=== PATIENT | female | born 1940 | race Caucasian/White ===

== ENCOUNTER 2016-08-13 06:53 | Day surgery (SDC) | payer MEDICARE, OTHER ==
[2016-08-13] MEDS ORDERED: Sodium Chloride 0.9% 10 ML Syringe FLUSH PRN (07:00)
[2016-08-13] MEDS ORDERED: Lactated Ringers 1,000 ML IV SCH (07:00)
[2016-08-13] MEDS ORDERED: Lidocaine 2% 100 MG/5 ML Syringe IVPUSH ONE (08:30)
[2016-08-13] MEDS ORDERED: Propofol 200 MG/20 ML SDV IV ONE (08:30)
[2016-08-13] MEDS ORDERED: Midazolam 1 MG/ML 2 ML SDV IV ONE (08:30)
--- NOTE | 2016-08-13 08:54 | PCM.OPNOTE ---
- General Post-Op/Procedure Note Date of Surgery/Procedure: 08/13/16 Operative Procedure(s): egd with bx Findings: gastritis hiatal hernia Pre Op Diagnosis: anemia Post-Op Diagnosis: gastritis. hiatal hernia Anesthesia Technique: MAC Primary Surgeon: Angel Dickson Anesthesia Provider: Susie Soriano Pathology: gastric Complications: None Condition: Good Free Text/Narrative:: see dictation
[2016-08-13 11:26] VITALS: BP 159/79
--- NOTE | 2016-08-13 12:09 | OR ---
DATE OF OPERATION: 08/13/2016 SURGEON: Angel Dickson MD PROCEDURE PERFORMED: Esophagogastroduodenoscopy with cold forceps biopsy. PREOPERATIVE DIAGNOSES: Anemia and abdominal pain, epigastric. POSTOPERATIVE DIAGNOSES: Hiatal hernia and gastritis. INDICATIONS FOR PROCEDURE: This is a 75-year-old white female, who is referred with the above-mentioned complaints. She was offered and accepted an EGD. DESCRIPTION OF OPERATION: After an excellent IV sedation was administered, the bite block was inserted. The flexible endoscope was passed without difficulty down the patient's esophagus into the stomach. The stomach was insufflated, and the scope was passed through the pylorus to the second portion of the duodenum and slowly withdrawn. The following findings were noted. Duodenum was unremarkable. Stomach demonstrated some diffuse gastritis as well as a hiatal hernia. Biopsies were taken as well as photos. GE junction measured at 30 cm, and the esophagus was essentially unremarkable. The stomach was deflated. Scope was removed. The patient tolerated the procedure well and was taken to recovery room in good condition. /[id number] /COLEENL
== END 2016-08-13 11:24 | disposition home or self-care (01) ==
LOC: FB.SDS 06:53
PROVIDERS: ATTEND Surgery
DX: K29.50 Unspecified chronic gastritis without bleeding (principal); K44.9 Diaphragmatic hernia without obstruction or gangrene; Z79.899 Other long term (current) drug therapy; D64.9 Anemia, unspecified; I12.9 Hypertensive chronic kidney disease with stage 1 through stage 4 chronic kidney disease, or unspecified chronic kidney disease; N18.9 Chronic kidney disease, unspecified; E78.2 Mixed hyperlipidemia; F32.9 Major depressive disorder, single episode, unspecified; Z98.890 Other specified postprocedural states; Z90.710 Acquired absence of both cervix and uterus; Z90.49 Acquired absence of other specified parts of digestive tract
CPT/HCPCS: 00740; 43239; 88305; 88342; J2250; J2704; J7120

== ENCOUNTER 2017-10-08 06:38 | Day surgery (SDC) | payer MEDICARE, OTHER ==
[2017-10-08] MEDS ORDERED: Sodium Chloride 0.9% 10 ML Syringe FLUSH PRN (06:45)
[2017-10-08] MEDS ORDERED: Lactated Ringers 1,000 ML IV SCH (06:45)
--- NOTE | 2017-10-08 08:18 | PCM.OPNOTE ---
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
[2017-10-08 09:01] VITALS: BP 137/77
--- NOTE | 2017-10-08 14:24 | OR ---
DATE OF OPERATION: 10/08/2017 SURGEON: Angel Dickson MD PROCEDURES PERFORMED: Upper endoscopy with esophageal dilatation. PREOPERATIVE DIAGNOSIS: Upper esophageal sphincter hypertension. POSTOPERATIVE DIAGNOSIS: Upper esophageal sphincter hypertension. INDICATIONS FOR PROCEDURE: This is a 77-year-old white female who has a history of some dysphagia and some coughing. EGD and barium swallow were essentially unremarkable. However, on esophageal manometry, she was noted to have some hypertension in her UES and, therefore, was offered dilatation to see if that would make a difference. DESCRIPTION OF OPERATION: After an excellent IV sedation was administered, the bite block was inserted. The flexible endoscope was passed down the esophagus and into the stomach. The scope was then slowly withdrawn, and the mucosa was carefully inspected. At the upper esophagus, distal half, the balloon was deployed and in a series of 3 dilatations, the upper esophageal sphincter was stretched out. No bloody show was noted when I stretched out to the maximum diameter of our current balloon at 18 mm. The process was repeated twice. Mucosa was then inspected to look for any damage and none was seen. The scope was then removed. The patient tolerated the procedure well and was taken to Recovery in a good condition. /[id number] /MODL
== END 2017-10-08 09:45 | disposition home or self-care (01) ==
LOC: FB.SDS 06:38
PROVIDERS: ATTEND Surgery
PROC: 0D718ZZ Dilation of Upper Esophagus, Via Natural or Artificial Opening Endoscopic (ICD-10-PCS; principal; 2017-10-08)
DX: K22.4 Dyskinesia of esophagus (principal); R13.14 Dysphagia, pharyngoesophageal phase; Z79.82 Long term (current) use of aspirin; Z79.899 Other long term (current) drug therapy; Z88.8 Allergy status to other drugs, medicaments and biological substances; E78.2 Mixed hyperlipidemia; I12.9 Hypertensive chronic kidney disease with stage 1 through stage 4 chronic kidney disease, or unspecified chronic kidney disease; N18.9 Chronic kidney disease, unspecified
CPT/HCPCS: 43249; J7120

== ENCOUNTER 2020-02-10 07:25 | Day surgery (SDC) | payer MEDICARE, OTHER ==
[2020-02-10] MEDS ORDERED: Lidocaine 1% PF 2 ML SDV IV ONE (07:26)
[2020-02-10] MEDS ORDERED: Propofol 200 MG/20 ML SDV IV ONE (07:26)
[2020-02-10] MEDS ORDERED: Sodium Chloride 0.9% 10 ML Syringe FLUSH PRN (07:30)
[2020-02-10] MEDS ORDERED: Lactated Ringers 1,000 ML IV SCH (07:30)
--- NOTE | 2020-02-10 09:05 | PCM.OPNOTE ---
- General Post-Op/Procedure Note Date of Surgery/Procedure: 02/10/20 Operative Procedure(s): c scope Findings: external hemorrhoids sigmoid diverticulosis Pre Op Diagnosis: bleeding per rectum Post-Op Diagnosis: external hemorrhoids. sigmoid diverticulosis Anesthesia Technique: SHONNA Primary Surgeon: Angel Dickson Anesthesia Provider: Hi Garibay Pathology: none Complications: None Condition: Good Free Text/Narrative:: see dictation
[2020-02-10 10:49] VITALS: BP 124/92; PULSE 55
--- NOTE | 2020-02-10 11:39 | OR ---
DATE OF OPERATION: 02/10/2020 SURGEON: Angel Dickson MD PROCEDURE PERFORMED: Colonoscopy. PREOPERATIVE DIAGNOSIS: Bleeding per rectum. POSTOPERATIVE DIAGNOSIS: External hemorrhoids as well as diverticulosis. INDICATIONS FOR PROCEDURE: This is an 79-year-old who was referred with a complaint of the toilet bowl water occasionally turning pink. Her last scope was 5 years ago and essentially was unremarkable except for some diverticulosis and some hemorrhoids. She was offered and accepted colonoscopy. DESCRIPTION OF PROCEDURE: After an excellent IV sedation was administered, digital rectal exam was performed. No marked abnormality was noted. The flexible colonoscope was inserted and advanced to the cecum. The prep was excellent. The following findings were noted: Ascending colon, unremarkable. Transverse colon, unremarkable. Descending colon, unremarkable. Sigmoid, moderate diverticulosis. Rectum and anus, some external hemorrhoidal tags were noted and no marked internal hemorrhoids were noted. The patient tolerated the procedure well. MY RECOMMENDATIONS: Repeat colonoscopy on a p.r.n. basis going forward. /[id number] /NAIMA
== END 2020-02-10 10:35 | disposition home or self-care (01) ==
LOC: FB.SDS 07:25
PROVIDERS: ATTEND Surgery
DX: K57.30 Diverticulosis of large intestine without perforation or abscess without bleeding (principal); K64.8 Other hemorrhoids; K64.4 Residual hemorrhoidal skin tags; E78.2 Mixed hyperlipidemia; I12.9 Hypertensive chronic kidney disease with stage 1 through stage 4 chronic kidney disease, or unspecified chronic kidney disease; N18.9 Chronic kidney disease, unspecified; F32.9 Major depressive disorder, single episode, unspecified; Z79.899 Other long term (current) drug therapy; Z88.8 Allergy status to other drugs, medicaments and biological substances; Z98.890 Other specified postprocedural states
CPT/HCPCS: 00811; 45378; J2001; J2704; J7120

== ENCOUNTER 2020-02-14 16:55 | Emergency (ER) | payer MEDICARE, OTHER ==
[2020-02-14] MEDS ORDERED: Acetaminophen/HYDROcodone 325-5 MG Tab PO ONE (16:56)
[2020-02-14] MEDS: Ondansetron 4 MG Tab.DIS PO ONE (18:43)
[2020-02-14] MEDS: HYDROmorphone 2 MG/ML SDV IM ONE (18:43)
--- NOTE | 2020-02-14 18:44 | EDM.PDOC ---
ED HPI GENERAL MEDICAL PROBLEM - General Chief Complaint: Back Pain or Injury Stated Complaint: BACK PAIN Time Seen by Provider: 02/14/20 18:05 Source of Information: Reports: Patient History Limitations: Reports: No Limitations - History of Present Illness INITIAL COMMENTS - FREE TEXT/NARRATIVE: c/o LBP at 4-5p yesterday pt had sudden onset of pain in her R lower hemithorax in the posterior axillary line, up about 1/[address] up the thorax, also with some pain across the lower back took ASA 2 tabs q6h the helped some went to walk-in, writhing in pain in walk-in, Christin called me and said she had a UTI (mod bact, mod epi's, 10-20 wbc) altho pt saw Dr Viramontes 2w ago and just got off of an antbx TID 2d ago no dysuria, no freq pt has had chronic LBP, yet the current pain is much worse than any pain she has had in 1.5y, was better after Toradol inc'd with change in position, no radiation, slight N, no V lives alone, drives, does housekeeping, cooks, uses quad walker has had 3 surgeries of l-spine last labs in [employer] 5y ago Christin concerned re pyelo, however no fever and not tender at CVAT, not right hx or PE for pyelo no abd pain, no clinical concern for GI or intrabd problem pain appears MS in origin, possible exacerbation of her chronic mechanical pain altho she points to pain more at the posterior R axillary line, cannot exclude a compression fx with radiation laterally, will obtain CT of T and L spine pt her alone, says her son can come pick her up when needed Lower Back Pain Score (Numeric/FACES): 5 - Related Data Allergies Allergy/AdvReac Type Severity Reaction Status Date / Time pseudoephedrine Allergy Cannot Verified 02/14/20 19:00 [From Kaylie] Remember Home Meds: Home Meds Citalopram Hydrobromide [Celexa] 20 mg PO DAILY 11/01/14 [History] Ferrous Sulfate 650 mg PO DAILY 11/01/14 [History] Fexofenadine [Yesica] 180 mg PO DAILY PRN 11/01/14 [History] Multivitamin with Minerals [Multiple Vitamin] 1 tab PO DAILY 11/01/14 [History] atenoloL [Atenolol] 25 mg PO DAILY 11/01/14 [History] rOPINIRole [Requip] 0.25 mg PO BEDTIME 11/01/14 [History] atorvaSTATin [Lipitor] 40 mg PO BEDTIME 08/12/16 [History] traZODone 50 mg PO BEDTIME PRN 08/12/16 [History] Pantoprazole [ProTONIX] 40 mg PO DAILY 10/07/17 [History] Past Medical History HEENT History: Reports: Allergic Rhinitis, Cataract, Impaired Vision Cardiovascular History: Reports: High Cholesterol, Hypertension, Other (See Below) Other Cardiovascular History: VENOUS INSUFFICIENCY Respiratory History: Reports: SOB Gastrointestinal History: Reports: GERD, GI Bleed, Hemorrhoids, Hiatal Hernia, PUD Genitourinary History: Reports: Renal Disease Musculoskeletal History: Reports: Back Pain, Chronic, Fracture Other Musculoskeletal History: DDD. RLS Neurological History: Reports: CVA, Neuropathy, Peripheral, Other (See Below) Other Neuro History: RESTLESS LEG SYNDROME Psychiatric History: Reports: Depression Endocrine/Metabolic History: Reports: None Hematologic History: Reports: Anemia Immunologic History: Reports: None Oncologic (Cancer) History: Reports: Basal Cell Carcinoma Other Oncologic History: RT EAR ON SKIN Dermatologic History: Reports: Seborrheic Dermatitis Other Dermatologic History: ACTINIC KERATOSIS - Infectious Disease History Infectious Disease History: Reports: Chicken Pox, Measles, Mumps - Past Surgical History Head Surgeries/Procedures: Reports: None HEENT Surgical History: Reports: Cataract Surgery Cardiovascular Surgical History: Reports: None Respiratory Surgical History: Reports: None GI Surgical History: Reports: Cholecystectomy, Colonoscopy, EGD Other GI Surgeries/Procedures: HEMORRHOIDECTOMY. ESOPHAGEAL MANOMETRY Female Surgical History: Reports: Hysterectomy, Salpingo-Oophorectomy Endocrine Surgical History: Reports: None Neurological Surgical History: Reports: Discectomy, Laminectomy Musculoskeletal Surgical History: Reports: ORIF, Other (See Below) Other Musculoskeletal Surgeries/Procedures:: LAMINECTOMY. RIGHT ANKLE ORIF Social & Family History - Family History Family Medical History: Noncontributory - Caffeine Use Caffeine Use: Reports: Coffee, Tea ED ROS GENERAL - Review of Systems Review Of Systems: See Below Constitutional: Reports: No Symptoms HEENT: Reports: No Symptoms Respiratory: Reports: No Symptoms Cardiovascular: Reports: No Symptoms Endocrine: Reports: No Symptoms GI/Abdominal: Reports: No Symptoms : Reports: No Symptoms Musculoskeletal: Reports: Back Pain Skin: Reports: No Symptoms Neurological: Reports: No Symptoms Psychiatric: Reports: No Symptoms Hematologic/Lymphatic: Reports: No Symptoms Immunologic: Reports: No Symptoms ED EXAM,LOWER BACK PAIN/INJURY - Physical Exam Exam: See Below Exam Limited By: No Limitations General Appearance: Alert, WD/WN, Moderate Distress Head: Atraumatic, Normocephalic Neck: Normal Inspection, Supple, Non-Tender, Full Range of Motion. No: Lymphadenopathy (R), Lymphadenopathy (L) Respiratory/Chest: No Respiratory Distress, Lungs Clear, Normal Breath Sounds, No Accessory Muscle Use Cardiovascular: Regular Rate, Rhythm, No Edema, No Rub, Other (2/6 BARBARA at LSB) GI/Abdominal: Normal Bowel Sounds, Soft, Non-Tender, No Organomegaly, No Distention Back Exam: Other (mild tender 1+ at R posterior axillary line up thorax 1/3rd, no point tender, no localized rib tender, deep breath without splinting, no true tender of T or L spine, nonspecific mild tender across lower back, old long scar over l-spine in midline). No: CVA Tenderness (R), CVA Tenderness (L) Extremities: Normal Inspection, Non-Tender, No Pedal Edema Neurological: Alert, CN II-XII Intact, No Motor/Sensory Deficits, Oriented x 3 Psychiatric: Normal Affect, Normal Mood Skin Exam: Warm, Dry, Intact, Normal Color, No Rash Lymphatic: No Adenopathy Course - Vital Signs Last Recorded V/S: Last Vital Signs Temp 36.7 C 02/14/20 18:00 Pulse 54 L 02/14/20 18:00 Resp 18 02/14/20 18:00 BP 141/70 H 02/14/20 18:00 Pulse Ox 99 02/14/20 18:00 - Orders/Labs/Meds Orders: Active Orders 24 hr Category Date Time Status Lumbar Spine wo Cont [CT] Stat Exams 02/14/20 18:36 Ordered Thoracic Spine wo Cont [CT] Stat Exams 02/14/20 18:34 Ordered Labs: Laboratory Tests 02/14/20 02/14/20 02/14/20 Range/Units 18:35 18:35 18:35 WBC 4.8 (4.5-12.0) X10-3/uL RBC 3.44 (3.23-5.20) x10(6)uL Hgb 10.8 L (11.5-15.5) g/dL Hct 32.3 (30.0-51.3) % MCV 93.6 (80-96) fL MCH 31.3 (27.7-33.6) pg MCHC 33.4 (32.2-35.4) g/dL RDW 11.7 (11.5-15.5) % Plt Count 152 (125-369) X10(3)uL MPV 9.8 (7.4-10.4) fL Neut % (Auto) 43.7 L (46-82) % Lymph % (Auto) 41.8 H (13-37) % [place] % (Auto) 8.9 (4-12) % Eos % (Auto) 5 (1.0-5.0) % Baso % (Auto) 1 (0-2) % Neut # (Auto) 2.2 (1.6-8.3) # Lymph # (Auto) 2.0 (0.6-5.0) # [place] # (Auto) 0.4 (0.0-1.3) # Eos # (Auto) 0.2 (0.0-0.8) # Baso # (Auto) 0.0 (0.0-0.2) # Sodium 140 (135-145) mmol/L Potassium 5.0 (3.5-5.3) mmol/L Chloride 106 (100-110) mmol/L Carbon Dioxide 25 (21-32) mmol/L BUN 31 H (7-18) mg/dL Creatinine 1.5 H (0.55-1.02) mg/dL Est Cr Clr Drug Dosing TNP Estimated GFR (MDRD) 33 L (>60) BUN/Creatinine Ratio 20.7 H (9-20) Glucose 95 (80-116) mg/dL Calcium 10.7 H (8.6-10.2) mg/dL Magnesium 1.8 (1.8-2.5) mg/dL Total Bilirubin 0.2 (0.1-1.3) mg/dL AST 24 (5-25) IU/L ALT 34 (12-36) U/L Alkaline Phosphatase 56 (56-112) IU/L C-Reactive Protein (0.5-0.9) mg/dL Total Protein 6.5 (6.0-8.0) g/dL Albumin 3.3 (3.2-4.6) g/dL Globulin 3.2 g/dL Albumin/Globulin Ratio 1.0 02/13/ Range/Units 18:35 WBC (4.5-12.0) X10-3/uL RBC (3.23-5.20) x10(6)uL Hgb (11.5-15.5) g/dL Hct (30.0-51.3) % MCV (80-96) fL MCH (27.7-33.6) pg MCHC (32.2-35.4) g/dL RDW (11.5-15.5) % Plt Count (125-369) X10(3)uL MPV (7.4-10.4) fL Neut % (Auto) (46-82) % Lymph % (Auto) (13-37) % [place] % (Auto) (4-12) % Eos % (Auto) (1.0-5.0) % Baso % (Auto) (0-2) % Neut # (Auto) (1.6-8.3) # Lymph # (Auto) (0.6-5.0) # [place] # (Auto) (0.0-1.3) # Eos # (Auto) (0.0-0.8) # Baso # (Auto) (0.0-0.2) # Sodium (135-145) mmol/L Potassium (3.5-5.3) mmol/L Chloride (100-110) mmol/L Carbon Dioxide (21-32) mmol/L BUN (7-18) mg/dL Creatinine (0.55-1.02) mg/dL Est Cr Clr Drug Dosing Estimated GFR (MDRD) (>60) BUN/Creatinine Ratio (9-20) Glucose (80-116) mg/dL Calcium (8.6-10.2) mg/dL Magnesium (1.8-2.5) mg/dL Total Bilirubin (0.1-1.3) mg/dL AST (5-25) IU/L ALT (12-36) U/L Alkaline Phosphatase (56-112) IU/L C-Reactive Protein 0.2 L (0.5-0.9) mg/dL Total Protein (6.0-8.0) g/dL Albumin (3.2-4.6) g/dL Globulin g/dL Albumin/Globulin Ratio Meds: Medications Discontinued Medications Generic Name Dose Route Start Last Admin Trade Name Jimq PRN Reason Stop Dose Admin Hydromorphone HCl 0.5 mg 02/14/20 18:32 02/14/20 18:43 Dilaudid IM 02/14/20 18:33 0.5 mg ONETIME ONE Administration Ondansetron HCl 4 mg 02/14/20 18:33 02/14/20 18:43 Zofran Odt PO 02/14/20 18:34 4 mg ONETIME ONE Administration - Re-Assessments/Exams Free Text/Narrative Re-Assessment/Exam: 02/14/20 20:13 pt's exam is c/w compression fx, severity of pain unusual for pt as well as reoccurrence of pain despite meds including Toradol Departure - Departure Time of Disposition: 20:14 Disposition: Still A Patient 30 Condition: Good Clinical Impression: Severe back pain - Discharge Information *PRESCRIPTION DRUG MONITORING PROGRAM REVIEWED*: Not Applicable *COPY OF PRESCRIPTION DRUG MONITORING REPORT IN PATIENT LATA: Not Applicable Referrals: PCP,None [Ordering Only Provider] - Forms: ED Department Discharge Additional Instructions: pt signed out to Dr Lin at 7p at change of shift, CT of T and L spine pending, labs pending Sepsis Event Note (ED) - Focused Exam Vital Signs: Vital Signs Temp Pulse Resp BP Pulse Ox 02/14/20 18:00 36.7 C 54 L 18 141/70 H 99 - My Orders Last 24 Hours: My Active Orders 02/14/20 18:34 Thoracic Spine wo Cont [CT] Stat 02/14/20 18:36 Lumbar Spine wo Cont [CT] Stat - Assessment/Plan Last 24 Hours: My Active Orders 02/14/20 18:34 Thoracic Spine wo Cont [CT] Stat 02/14/20 18:36 Lumbar Spine wo Cont [CT] Stat
[2020-02-14 22:24] VITALS: BP 125/64; PULSE 52
== END 2020-02-14 21:45 | disposition home or self-care (01) ==
LOC: FB.ED 16:55
DX: M54.5 Low back pain (principal); I10 Essential (primary) hypertension; E78.00 Pure hypercholesterolemia, unspecified; K21.9 Gastro-esophageal reflux disease without esophagitis; F32.9 Major depressive disorder, single episode, unspecified; Z90.49 Acquired absence of other specified parts of digestive tract; Z90.710 Acquired absence of both cervix and uterus; Z88.8 Allergy status to other drugs, medicaments and biological substances; Z79.899 Other long term (current) drug therapy
CPT/HCPCS: 36415; 72128; 72131; 80053; 83735; 85025; 86140; 96372; 99284; A9270; J1170

== ENCOUNTER 2020-08-19 14:54 | Emergency (ER) | payer MEDICARE, OTHER ==
[2020-08-19] MEDS ORDERED: Sodium Phosphate,Monobasic/Sodium Phosphate,Dibasic Enema 133 ML Bottle RECTAL ONE (15:19)
[2020-08-19] MEDS ORDERED: Sodium Chloride 0.9% 1,000 ML IV ONE (15:20)
--- NOTE | 2020-08-19 16:02 | EDM.PDOC ---
ED HPI GENERAL MEDICAL PROBLEM - General Stated Complaint: INTESTINAL PAIN Time Seen by Provider: 08/19/20 15:00 Source of Information: Reports: Patient History Limitations: Reports: No Limitations - History of Present Illness INITIAL COMMENTS - FREE TEXT/NARRATIVE: c/o constipation pt states she is weak, did not eat bfast or lunch, sat on toilet from 8:30a to 2:30p, got up only twice, once to answer phone, once to drink some Gatorade took Ducolax, drank a bottle of Mg citrate has a cane, ordered a walker lives alone in her own house says she cannot move her bowels has chronic back pain, no abd pain - Related Data Allergies Allergy/AdvReac Type Severity Reaction Status Date / Time pseudoephedrine Allergy Cannot Verified 02/14/20 19:00 [From Kaylie] Remember Home Meds: Home Meds Citalopram Hydrobromide [Celexa] 20 mg PO DAILY 11/01/14 [History] Fexofenadine [Yesica] 180 mg PO DAILY PRN 11/01/14 [History] Multivitamin with Minerals [Multiple Vitamin] 1 tab PO DAILY 11/01/14 [History] atenoloL [Atenolol] 25 mg PO DAILY 11/01/14 [History] rOPINIRole [Requip] 0.25 mg PO BEDTIME 11/01/14 [History] atorvaSTATin [Lipitor] 40 mg PO BEDTIME 08/12/16 [History] traZODone 50 mg PO BEDTIME PRN 08/12/16 [History] Pantoprazole [ProTONIX] 40 mg PO DAILY 10/07/17 [History] Acetaminophen/HYDROcodone [[place] 325-5 MG] 1 - 2 tab PO Q4H PRN #10 tab 02/14/20 [Rx] Cyclobenzaprine [Flexeril] 5 mg PO Q8H PRN #15 tab 02/14/20 [Rx] Past Medical History HEENT History: Reports: Allergic Rhinitis, Cataract, Impaired Vision Cardiovascular History: Reports: High Cholesterol, Hypertension, Other (See Below) Other Cardiovascular History: VENOUS INSUFFICIENCY Respiratory History: Reports: SOB Gastrointestinal History: Reports: GERD, GI Bleed, Hemorrhoids, Hiatal Hernia, PUD Genitourinary History: Reports: Renal Disease Musculoskeletal History: Reports: Back Pain, Chronic, Fracture Other Musculoskeletal History: DDD. RLS Neurological History: Reports: CVA, Neuropathy, Peripheral, Other (See Below) Other Neuro History: RESTLESS LEG SYNDROME Psychiatric History: Reports: Depression Endocrine/Metabolic History: Reports: None Hematologic History: Reports: Anemia Immunologic History: Reports: None Oncologic (Cancer) History: Reports: Basal Cell Carcinoma Other Oncologic History: RT EAR ON SKIN Dermatologic History: Reports: Seborrheic Dermatitis Other Dermatologic History: ACTINIC KERATOSIS - Infectious Disease History Infectious Disease History: Reports: Chicken Pox, Measles, Mumps - Past Surgical History Head Surgeries/Procedures: Reports: None HEENT Surgical History: Reports: Cataract Surgery Cardiovascular Surgical History: Reports: None Respiratory Surgical History: Reports: None GI Surgical History: Reports: Cholecystectomy, Colonoscopy, EGD Other GI Surgeries/Procedures: HEMORRHOIDECTOMY. ESOPHAGEAL MANOMETRY Female Surgical History: Reports: Hysterectomy, Salpingo-Oophorectomy Endocrine Surgical History: Reports: None Neurological Surgical History: Reports: Discectomy, Laminectomy Musculoskeletal Surgical History: Reports: ORIF, Other (See Below) Other Musculoskeletal Surgeries/Procedures:: LAMINECTOMY. RIGHT ANKLE ORIF Social & Family History - Family History Family Medical History: No Pertinent Family History - Caffeine Use Caffeine Use: Reports: Coffee, Tea ED ROS GENERAL - Review of Systems Review Of Systems: See Below Constitutional: Reports: No Symptoms HEENT: Reports: No Symptoms Respiratory: Reports: No Symptoms Cardiovascular: Reports: No Symptoms Endocrine: Reports: No Symptoms GI/Abdominal: Reports: Constipation. Denies: Nausea, Vomiting : Reports: No Symptoms Musculoskeletal: Reports: No Symptoms Skin: Reports: No Symptoms Neurological: Reports: No Symptoms Psychiatric: Reports: No Symptoms Hematologic/Lymphatic: Reports: No Symptoms Immunologic: Reports: No Symptoms ED EXAM, GI/ABD - Physical Exam Exam: See Below Exam Limited By: No Limitations General Appearance: Alert, WD/WN, Other (weak, nonill, nontoxic) Throat/Mouth: Normal Voice, No Airway Compromise Head: Atraumatic, Normocephalic Neck: Normal Inspection Respiratory/Chest: No Respiratory Distress, Lungs Clear, Chest Non-Tender Cardiovascular: Regular Rate, Rhythm, No Edema, Other (2/6 BARBARA at LSB) GI/Abdominal Exam: Normal Bowel Sounds, Soft, Non-Tender, No Distention Rectal (Female) Exam: Other (pt with 4 very large soft old ext hemorrhoids of 3- 4 cm each, no prolapse, no blue discoloration, no excoriation, skin moist, there is a moderate amount of very soft brown stool in her diaper) Back Exam: Normal Inspection, Full Range of Motion. No: CVA Tenderness (R) Extremities: Normal Inspection, Normal Range of Motion, Non-Tender, No Pedal Edema, Other (dec'd turgor UEs) Neurological: Alert, Oriented, CN II-XII Intact, Normal Cognition, No Motor/Sensory Deficits Skin Exam: Warm, Dry, Intact, Normal Color, No Rash Lymphatic: No Adenopathy Course - Vital Signs Last Recorded V/S: Last Vital Signs Temp 36.7 C 08/19/20 20:20 Pulse 110 H 08/19/20 20:20 Resp 18 08/19/20 20:20 BP 151/74 H 08/19/20 20:20 Pulse Ox 99 08/19/20 20:20 - Orders/Labs/Meds Orders: Active Orders 24 hr Category Date Time Status Abdomen 2V AP Flat Upright [CR] Stat Exams 08/19/20 15:25 Taken Labs: Laboratory Tests 08/19/20 08/19/20 08/19/20 Range/Units 15:40 15:40 15:40 WBC 6.9 (3.0-10.3) x10-3/uL RBC 4.13 (3.60-5.20) x10(6)uL Hgb 12.5 (11.4-15.5) g/dL Hct 39.0 (34.2-48.2) % MCV 94.4 (76.7-100.5) fL MCH 30.3 (23.9-33.9) pg MCHC 32.0 (31.9-34.8) g/dL RDW 13.1 (12.3-16.5) % Plt Count 140 L (151-488) x10(3)uL MPV 10.2 (7.1-12.4) fL Add Manual Diff Yes Neutrophils % (Manual) 82 (46-82) % Lymphocytes % (Manual) 10 L (13-37) % Monocytes % (Manual) 8 (4-12) % Sodium 136 (135-145) mmol/L Potassium 4.2 (3.5-5.3) mmol/L Chloride 100 D (100-110) mmol/L Carbon Dioxide 24 (21-32) mmol/L BUN 42 H D (7-18) mg/dL Creatinine 1.6 H (0.55-1.02) mg/dL Est Cr Clr Drug Dosing TNP Estimated GFR (MDRD) 31 L (>60) BUN/Creatinine Ratio 26.3 H (9-20) Glucose 107 (80-116) mg/dL Calcium 10.7 H (8.6-10.2) mg/dL Total Bilirubin 0.4 (0.1-1.3) mg/dL AST 31 H D (5-25) IU/L ALT 40 H D (12-36) U/L Alkaline Phosphatase 71 (56-112) IU/L C-Reactive Protein < 0.2 L (0.5-0.9) mg/dL Total Protein 7.2 (6.0-8.0) g/dL Albumin 3.6 (3.2-4.6) g/dL Globulin 3.6 g/dL Albumin/Globulin Ratio 1.0 Meds: Medications Discontinued Medications Generic Name Dose Route Start Last Admin Trade Name Freq PRN Reason Stop Dose Admin Sodium Chloride 1,000 mls @ 999 mls/hr 08/19/20 15:20 08/19/20 16:00 Normal Saline IV 08/19/20 16:20 999 mls/hr .BOLUS ONE Administration Ketorolac Tromethamine 15 mg 08/19/20 19:27 08/19/20 19:30 Ketorolac 30 Mg/Ml Sdv IVPUSH 08/19/20 19:28 15 mg ONETIME ONE Administration Sodium Biphosphate/Sodium Phosphate 133 ml 08/19/20 15:19 08/19/20 17:25 Sodium Phosphate,Monobasic/Sodium Phosphate,Dibasic Enema 133 Ml Bottle RECTAL 08/19/20 15:20 1 box ONETIME ONE Administration - Re-Assessments/Exams Free Text/Narrative Re-Assessment/Exam: 08/20/20 08:47 pt had 2 moderate BMs here after Fleets enema KKUB 2v with minimal stool in colon, pt later reported she had BM at 8a and noon at home pt rested here, given 1 liter NS, was in better spirits and feeling stronger after rehydration pt strongly encouraged not to spend 6h on the commode, to come to ED if she had discomfort or could not get effective BM after 30 minutes pt does not like MOM, understands Mg citrate works and encouraged to use it if no BM after 48h, just not daily Departure - Departure Time of Disposition: 19:25 Disposition: Home, Self-Care 01 Clinical Impression: Constipation, Mild dehydration - Discharge Information *PRESCRIPTION DRUG MONITORING PROGRAM REVIEWED*: Not Applicable *COPY OF PRESCRIPTION DRUG MONITORING REPORT IN PATIENT LATA: Not Applicable Instructions: Chronic Constipation, Constipation, Adult Referrals: Scot Viramontes MD [Primary Care Provider] - Forms: ED Department Discharge Additional Instructions: Continue current meds. Drink a bottle of magnesium citrate if you have not had a bowel movement in 48 hours. There is no evidence of infection on your blood tests. Increase fluids. Do not strain on the commode if at all possible. Come to Emergency Department as needed for future problems. - My Orders Last 24 Hours: My Active Orders 08/19/20 15:25 Abdomen 2V AP Flat Upright [CR] Stat - Assessment/Plan Last 24 Hours: My Active Orders 08/19/20 15:25 Abdomen 2V AP Flat Upright [CR] Stat
[2020-08-19] MEDS ORDERED: Ketorolac 30 MG/ML SDV IVPUSH ONE (19:27)
[2020-08-19 22:07] VITALS: BP 151/74; PULSE 110
--- NOTE | 2020-08-21 11:50 | CR ---
INDICATION: Difficult with BMs, question obstruction, on toilet for 6 hours. ABDOMEN: Three views of the abdomen in supine and decubitus positions were obtained 08/19/20 - no comparisons. A massive fixed hiatal hernia with air-fluid levels is noted seen on previous esophagram of 03/24/17. There is evidence of cholecystectomy with clips in the right upper quadrant. The pattern of gas and feces is nonspecific without definite free air or a definite obstructive process. Severe degenerative disk disease and a moderate dextroconvex rotoscoliosis of the lumbar spine is noted. Degenerative changes are noted at the sacroiliac joints, right greater than left. There are no definite mass lesions, or nonvascular calcifications were identified. There are noted some arterial calcifications in the abdomen and pelvis. IMPRESSION: 1. Nonacute abdomen. 2. Massive fixed hiatal hernia present at least in part since 2017. MTDD
== END 2020-08-19 20:35 | disposition home or self-care (01) ==
LOC: FB.ED 14:54
DX: K59.00 Constipation, unspecified (principal); E86.0 Dehydration; E78.00 Pure hypercholesterolemia, unspecified; I10 Essential (primary) hypertension; K21.9 Gastro-esophageal reflux disease without esophagitis; G62.9 Polyneuropathy, unspecified; G25.81 Restless legs syndrome; Z88.8 Allergy status to other drugs, medicaments and biological substances; Z86.73 Personal history of transient ischemic attack (TIA), and cerebral infarction without residual deficits; Z79.899 Other long term (current) drug therapy
CPT/HCPCS: 36415; 74019; 80053; 85025; 86140; 96374; 99284; J1885; J7030

== ENCOUNTER 2020-08-22 15:49 | Emergency (ER) | payer MEDICARE, OTHER ==
[2020-08-22] MEDS ORDERED: Ondansetron 4 MG/2 ML SDV IVPUSH STA (16:22)
[2020-08-22] MEDS ORDERED: Pantoprazole 40 MG Vial IVPUSH ONE (16:22)
[2020-08-22] MEDS ORDERED: Sodium Chloride 0.9% 1,000 ML IV SCH ×2 (16:30→18:15)
[2020-08-22] MEDS ORDERED: Pantoprazole 40 MG Vial ONE (16:57)
--- NOTE | 2020-08-22 17:53 | EDM.PDOC ---
ED HPI GENERAL MEDICAL PROBLEM - General Stated Complaint: Weakness Time Seen by Provider: 08/22/20 16:45 Source of Information: Reports: Patient History Limitations: Reports: No Limitations - History of Present Illness INITIAL COMMENTS - FREE TEXT/NARRATIVE: Patient is an 80 YO WF who presented to the ED because of weakness and bloody stools. Four days ago she c/o constipation and then she used an enema and yesterday her stool was loose with bright red blood and some melanotic ones. She had several loose stools since yesterday and is now feeling weak. She also c/o nausea but no vomiting, denies having any abdominal pain. She has a history of Gastritis and PUD diagnosed by EGD several years ago but is not on any medication for it. Evita also c/o having a chronic cough, there is no fever or chills and had her 2 Covid vaccines. - Related Data Allergies Allergy/AdvReac Type Severity Reaction Status Date / Time pseudoephedrine Allergy Cannot Verified 08/22/20 17:27 [From Kaylie] Remember Home Meds: Home Meds Citalopram Hydrobromide [Celexa] 20 mg PO DAILY 11/01/14 [History] Fexofenadine [Yesica] 180 mg PO DAILY PRN 11/01/14 [History] Multivitamin with Minerals [Multiple Vitamin] 1 tab PO DAILY 11/01/14 [History] atenoloL [Atenolol] 25 mg PO DAILY 11/01/14 [History] rOPINIRole [Requip] 0.25 mg PO BEDTIME 11/01/14 [History] atorvaSTATin [Lipitor] 40 mg PO BEDTIME 08/12/16 [History] traZODone 50 mg PO BEDTIME PRN 08/12/16 [History] Pantoprazole [ProTONIX] 40 mg PO DAILY 10/07/17 [History] Acetaminophen/HYDROcodone [Gill 325-5 MG] 1 - 2 tab PO Q4H PRN #10 tab 02/14/20 [Rx] Cyclobenzaprine [Flexeril] 5 mg PO Q8H PRN #15 tab 02/14/20 [Rx] Past Medical History HEENT History: Reports: Allergic Rhinitis, Cataract, Impaired Vision Cardiovascular History: Reports: High Cholesterol, Hypertension, Other (See Below) Other Cardiovascular History: VENOUS INSUFFICIENCY Respiratory History: Reports: SOB Gastrointestinal History: Reports: GERD, GI Bleed, Hemorrhoids, Hiatal Hernia, PUD Genitourinary History: Reports: Renal Disease Musculoskeletal History: Reports: Back Pain, Chronic, Fracture Other Musculoskeletal History: DDD. RLS Neurological History: Reports: CVA, Neuropathy, Peripheral, Other (See Below) Other Neuro History: RESTLESS LEG SYNDROME Psychiatric History: Reports: Depression Endocrine/Metabolic History: Reports: None Hematologic History: Reports: Anemia Immunologic History: Reports: None Oncologic (Cancer) History: Reports: Basal Cell Carcinoma Other Oncologic History: RT EAR ON SKIN Dermatologic History: Reports: Seborrheic Dermatitis Other Dermatologic History: ACTINIC KERATOSIS - Infectious Disease History Infectious Disease History: Reports: Chicken Pox, Measles, Mumps - Past Surgical History Head Surgeries/Procedures: Reports: None HEENT Surgical History: Reports: Cataract Surgery Cardiovascular Surgical History: Reports: None Respiratory Surgical History: Reports: None GI Surgical History: Reports: Cholecystectomy, Colonoscopy, EGD Other GI Surgeries/Procedures: HEMORRHOIDECTOMY. ESOPHAGEAL MANOMETRY Female Surgical History: Reports: Hysterectomy, Salpingo-Oophorectomy Endocrine Surgical History: Reports: None Neurological Surgical History: Reports: Discectomy, Laminectomy Musculoskeletal Surgical History: Reports: ORIF, Other (See Below) Other Musculoskeletal Surgeries/Procedures:: LAMINECTOMY. RIGHT ANKLE ORIF Social & Family History - Family History Family Medical History: No Pertinent Family History - Caffeine Use Caffeine Use: Reports: Soda Caffeine Use Comment: 12 oz pop ED ROS GENERAL - Review of Systems Review Of Systems: See Below Constitutional: Reports: Weakness HEENT: Reports: No Symptoms Respiratory: Reports: No Symptoms Cardiovascular: Reports: No Symptoms Endocrine: Reports: No Symptoms GI/Abdominal: Reports: Black Stool, Bloody Stool : Reports: No Symptoms Musculoskeletal: Reports: No Symptoms Skin: Reports: No Symptoms Neurological: Reports: No Symptoms ED EXAM, GI/ABD - Physical Exam Exam: See Below Exam Limited By: No Limitations General Appearance: Alert, No Apparent Distress Ears: Normal External Exam, Normal Canal Nose: Normal Inspection Throat/Mouth: Normal Inspection Head: Atraumatic, Normocephalic Neck: Normal Inspection, Supple, Non-Tender, Full Range of Motion Respiratory/Chest: No Respiratory Distress, Lungs Clear, Normal Breath Sounds, No Accessory Muscle Use, Chest Non-Tender Cardiovascular: Normal Peripheral Pulses, Regular Rate, Rhythm, No Edema, No JVD, No Murmur, No Rub GI/Abdominal Exam: Normal Bowel Sounds, Soft, Non-Tender, No Organomegaly Rectal (Female) Exam: Normal Rectal Tone, Black Stool, Heme + Stool Back Exam: Normal Inspection, Full Range of Motion Extremities: Normal Inspection, Normal Range of Motion, No Pedal Edema #1 Interpretation EKG Date: 08/22/20 Time: 17:15 Rhythm: NSR Rate (Beats/Min): 83 [place]: Normal P-Wave: Present QRS: Normal ST-T: Normal QT: Normal Comparison: No Change EKG Interpretation Comments: NSR Course - Vital Signs Text/Narrative:: Labs/EKG result was reviewed and discussed with patient NS 1 L bolus Zofran 4 mg IV x1 Protonix 80 mg IV x1 Covid test-negative Code Status: Full Code Case discussed with Dr Catherine who agreed with the above plan of care Last Recorded V/S: Last Vital Signs Temp 36.9 C 08/22/20 15:49 Pulse 98 08/22/20 15:49 Resp 20 08/22/20 15:49 BP 141/78 H 08/22/20 15:49 Pulse Ox 99 08/22/20 15:49 - Orders/Labs/Meds Orders: Active Orders 24 hr Category Date Time Status Chest 1V Frontal [CR] Stat Exams 08/22/20 16:23 Taken EKG 12 Lead [EK] Routine Ther 08/22/20 16:23 Ordered Labs: Laboratory Tests 08/22/20 08/22/20 08/22/20 Range/Units 16:15 16:15 16:15 WBC 5.7 (3.0-10.3) x10-3/uL RBC 3.41 L (3.60-5.20) x10(6)uL Hgb 10.4 L (11.4-15.5) g/dL Hct 31.5 L (34.2-48.2) % MCV 92.3 (76.7-100.5) fL MCH 30.4 (23.9-33.9) pg MCHC 32.9 (31.9-34.8) g/dL RDW 13.2 (12.3-16.5) % Plt Count 150 L (151-488) x10(3)uL MPV 9.6 (7.1-12.4) fL Neut % (Auto) 65.5 (30.8-76.2) % Lymph % (Auto) 19.6 (18.4-52.1) % [place] % (Auto) 12.1 (4.4-15.7) % Eos % (Auto) 2.4 (0.6-8.1) % Baso % (Auto) 0.4 (0.2-1.5) % Neut # (Auto) 3.7 (1.5-6.3) x10-3/uL Lymph # (Auto) 1.1 (1.0-4.4) x10-3/uL [place] # (Auto) 0.7 (0.3-1.0) x10-3/uL Eos # (Auto) 0.1 (0.0-0.8) x10-3/uL Baso # (Auto) 0.0 (0.0-0.1) x10-3/uL PT 9.2 (9.0-11.1) sec INR 0.84 L (1.00-1.24) APTT 25.4 (24.4-33.2) SECONDS Sodium 135 (135-145) mmol/L Potassium 5.0 (3.5-5.3) mmol/L Chloride 99 L (100-110) mmol/L Carbon Dioxide 26 (21-32) mmol/L BUN 28 H D (7-18) mg/dL Creatinine 1.5 H (0.55-1.02) mg/dL Est Cr Clr Drug Dosing TNP Estimated GFR (MDRD) 33 L (>60) BUN/Creatinine Ratio 18.7 (9-20) Glucose 102 (80-116) mg/dL Calcium 10.7 H (8.6-10.2) mg/dL Total Bilirubin 0.2 (0.1-1.3) mg/dL AST 39 H D (5-25) IU/L ALT 51 H D (12-36) U/L Alkaline Phosphatase 74 (56-112) IU/L Troponin I (4.0-60.3) pg/mL Total Protein 6.7 (6.0-8.0) g/dL Albumin 2.9 L (3.2-4.6) g/dL Globulin 3.8 g/dL Albumin/Globulin Ratio 0.8 Urine Color (YELLOW) Urine Appearance (CLEAR) Urine pH (5.0-6.5) Ur Specific [place] (1.010-1.025) Urine Protein (NEGATIVE) mg/dL Urine Glucose (UA) (NORMAL) mg/dL Urine Ketones (NEGATIVE) mg/dL Urine Occult Blood (NEGATIVE) Urine Nitrite (NEGATIVE) Urine Bilirubin (NEGATIVE) Urine Urobilinogen (NEGATIVE) mg/dL Ur Leukocyte Esterase (NEGATIVE) Urine RBC (0-5) Urine WBC (0-5) Ur Squamous Epith Cells (NS,R,O) Urine Bacteria (NS) SARS-CoV-2 RNA (MAZIN) (NEGATIVE) 08/22/20 08/22/20 08/22/20 Range/Units 16:15 16:45 18:00 WBC (3.0-10.3) x10-3/uL RBC (3.60-5.20) x10(6)uL Hgb (11.4-15.5) g/dL Hct (34.2-48.2) % MCV (76.7-100.5) fL MCH (23.9-33.9) pg MCHC (31.9-34.8) g/dL RDW (12.3-16.5) % Plt Count (151-488) x10(3)uL MPV (7.1-12.4) fL Neut % (Auto) (30.8-76.2) % Lymph % (Auto) (18.4-52.1) % [place] % (Auto) (4.4-15.7) % Eos % (Auto) (0.6-8.1) % Baso % (Auto) (0.2-1.5) % Neut # (Auto) (1.5-6.3) x10-3/uL Lymph # (Auto) (1.0-4.4) x10-3/uL [place] # (Auto) (0.3-1.0) x10-3/uL Eos # (Auto) (0.0-0.8) x10-3/uL Baso # (Auto) (0.0-0.1) x10-3/uL PT (9.0-11.1) sec INR (1.00-1.24) APTT (24.4-33.2) SECONDS Sodium (135-145) mmol/L Potassium (3.5-5.3) mmol/L Chloride (100-110) mmol/L Carbon Dioxide (21-32) mmol/L BUN (7-18) mg/dL Creatinine (0.55-1.02) mg/dL Est Cr Clr Drug Dosing Estimated GFR (MDRD) (>60) BUN/Creatinine Ratio (9-20) Glucose (80-116) mg/dL Calcium (8.6-10.2) mg/dL Total Bilirubin (0.1-1.3) mg/dL AST (5-25) IU/L ALT (12-36) U/L Alkaline Phosphatase (56-112) IU/L Troponin I 4.4 (4.0-60.3) pg/mL Total Protein (6.0-8.0) g/dL Albumin (3.2-4.6) g/dL Globulin g/dL Albumin/Globulin Ratio Urine Color Yellow (YELLOW) Urine Appearance Clear (CLEAR) Urine pH 7.0 H (5.0-6.5) Ur Specific [place] 1.005 L (1.010-1.025) Urine Protein Negative (NEGATIVE) mg/dL Urine Glucose (UA) Normal (NORMAL) mg/dL Urine Ketones Negative (NEGATIVE) mg/dL Urine Occult Blood Negative (NEGATIVE) Urine Nitrite Negative (NEGATIVE) Urine Bilirubin Negative (NEGATIVE) Urine Urobilinogen Normal (NEGATIVE) mg/dL Ur Leukocyte Esterase Negative (NEGATIVE) Urine RBC Not seen (0-5) Urine WBC 0-5 (0-5) Ur Squamous Epith Cells Rare (NS,R,O) Urine Bacteria Few H (NS) SARS-CoV-2 RNA (MAZIN) Negative (NEGATIVE) Meds: Medications Discontinued Medications Generic Name Dose Route Start Last Admin Trade Name Freq PRN Reason Stop Dose Admin Sodium Chloride 1,000 mls @ 999 mls/hr 08/22/20 16:30 08/22/20 16:45 Normal Saline IV 999 mls/hr ASDIRECTED CORTES Administration Sodium Chloride 1,000 mls @ 125 mls/hr 08/22/20 18:15 08/22/20 18:14 Normal Saline IV 125 mls/hr ASDIRECTED CORTES Administration Ondansetron HCl 4 mg 08/22/20 16:22 08/22/20 16:54 Ondansetron 4 Mg/2 Ml Sdv IVPUSH 08/22/20 16:23 4 mg NOW STA Administration Pantoprazole Sodium 80 mg 08/22/20 16:22 08/22/20 16:58 Pantoprazole 40 Mg Vial IVPUSH 08/22/20 16:23 80 mg .BOLUS ONE Administration Pantoprazole Sodium Confirm 08/22/20 16:57 Pantoprazole 40 Mg Vial Administered 08/22/20 16:58 Dose 40 mg .ROUTE .STK-MED ONE Departure - Departure Time of Disposition: 18:00 Disposition: DC/Tfer to [facility] 02 Condition: Good Clinical Impression: UGI bleed, CKD (chronic kidney disease), Anemia - Discharge Information Referrals: Scot Viramontes MD [Primary Care Provider] - Forms: ED Department Discharge - My Orders Last 24 Hours: My Active Orders 08/22/20 16:23 Chest 1V Frontal [CR] Stat EKG 12 Lead [EK] Routine - Assessment/Plan Last 24 Hours: My Active Orders 08/22/20 16:23 Chest 1V Frontal [CR] Stat EKG 12 Lead [EK] Routine
[2020-08-22 19:06] VITALS: BP 141/78; PULSE 98
--- NOTE | 2020-08-23 10:28 | CR ---
CHEST ONE VIEW [id number] INDICATION: Cough. AP portable upright view of the chest was obtained 08/22/2020--no comparisons. Very poor inspiration is noted emphasizing markings. A definite active infiltrate or effusion was not identified. Overlying EKG leads are noted. The heart appeared somewhat prominent in size and may be significantly enlarged. However, it is emphasized by the poor inspiration and AP positioning. The aorta is tortuous with calcification in the arch. IMPRESSION: 1. No definite acute process. 2. Probable ASHD. 3. Poor inspiration emphasizes markings and heart size--full inspiration PA and lateral views of the chest may be helpful for further evaluation, when clinically possible. MTDD
== END 2020-08-22 18:40 ==
LOC: FB.ED 15:49
DX: K92.2 Gastrointestinal hemorrhage, unspecified (principal); I12.9 Hypertensive chronic kidney disease with stage 1 through stage 4 chronic kidney disease, or unspecified chronic kidney disease; N18.9 Chronic kidney disease, unspecified; D63.1 Anemia in chronic kidney disease; G25.81 Restless legs syndrome; E78.00 Pure hypercholesterolemia, unspecified; K21.9 Gastro-esophageal reflux disease without esophagitis; G62.9 Polyneuropathy, unspecified; Z88.8 Allergy status to other drugs, medicaments and biological substances; Z86.73 Personal history of transient ischemic attack (TIA), and cerebral infarction without residual deficits; Z20.822 Contact with and (suspected) exposure to COVID-19
CPT/HCPCS: 36415; 71045; 80053; 81001; 82270; 84484; 85025; 85610; 85730; 93005; 96374; 96375; 99285; C9113; J2405; J7030; U0002

== ENCOUNTER 2021-08-15 07:19 | Day surgery (SDC) | payer MEDICARE, OTHER ==
[2021-08-15] MEDS ORDERED: Sodium Chloride 0.9% 10 ML Syringe FLUSH PRN (07:45)
[2021-08-15] MEDS ORDERED: Lactated Ringers 1,000 ML IV PRN (07:45)
[2021-08-15 10:05] VITALS: BP 125/72; PULSE 61
== END 2021-08-15 09:56 | disposition home or self-care (01) ==
LOC: FB.SDS 07:19
PROVIDERS: ATTEND Surgery
DX: K64.4 Residual hemorrhoidal skin tags (principal); K64.1 Second degree hemorrhoids; E78.5 Hyperlipidemia, unspecified; I10 Essential (primary) hypertension; Z88.8 Allergy status to other drugs, medicaments and biological substances; Z79.899 Other long term (current) drug therapy; Z86.73 Personal history of transient ischemic attack (TIA), and cerebral infarction without residual deficits; Z98.890 Other specified postprocedural states
CPT/HCPCS: 45330; J3490

== ENCOUNTER 2021-12-18 12:21 | Emergency (ER) | payer OTHER, MEDICARE ==
[2021-12-18 12:36] VITALS: BP 136/60; PULSE 66
[2021-12-18] MEDS: oxyCODONE 5 MG Tab PO ONE (13:20)
== END 2021-12-18 14:25 | disposition home or self-care (01) ==
LOC: FB.ED 12:21
DX: S60.032A Contusion of left middle finger without damage to nail, initial encounter (principal); S80.01XA Contusion of right knee, initial encounter; S80.12XA Contusion of left lower leg, initial encounter; S20.219A Contusion of unspecified front wall of thorax, initial encounter; S50.811A Abrasion of right forearm, initial encounter; E78.00 Pure hypercholesterolemia, unspecified; I10 Essential (primary) hypertension; K21.9 Gastro-esophageal reflux disease without esophagitis; Z88.8 Allergy status to other drugs, medicaments and biological substances; Z86.73 Personal history of transient ischemic attack (TIA), and cerebral infarction without residual deficits; V43.52XA Car driver injured in collision with other type car in traffic accident, initial encounter; Y92.410 Unspecified street and highway as the place of occurrence of the external cause
CPT/HCPCS: 73562; 73590; 99284; A9270

== ENCOUNTER 2022-03-14 11:09 | Emergency (ER) | payer MEDICARE, OTHER ==
[2022-03-14] MEDS ORDERED: Lidocaine 2% Viscous Solution 15 ML UD TOP ONE (11:40)
[2022-03-14] MEDS ORDERED: Sodium Chloride 0.9% 10 ML Syringe FLUSH PRN (13:16)
[2022-03-14] MEDS ORDERED: Morphine 2 MG/ML SYRINGE IM ONE (13:53)
[2022-03-14 15:16] VITALS: BP 122/68; PULSE 65
== END 2022-03-14 14:05 ==
LOC: FB.ED 11:09
DX: K62.3 Rectal prolapse (principal); E78.00 Pure hypercholesterolemia, unspecified; I10 Essential (primary) hypertension; K21.9 Gastro-esophageal reflux disease without esophagitis; Z88.8 Allergy status to other drugs, medicaments and biological substances; Z79.899 Other long term (current) drug therapy
CPT/HCPCS: 96372; 99284; A9270-GY; J2270

== ENCOUNTER 2022-03-29 10:35 | Inpatient (IN) | payer MEDICARE, OTHER ==
[2022-03-30] MEDS ORDERED: Cyclobenzaprine 10 MG Tab PO PRN (13:57)
[2022-03-30] MEDS ORDERED: Ondansetron 4 MG Tab.DIS PO PRN (13:57)
[2022-03-30] MEDS ORDERED: oxyCODONE 5 MG Tab PO PRN (13:57)
[2022-03-30] MEDS: Acetaminophen 500 MG Tab PO SCH ×2 (14:46→21:30)
[2022-03-30] MEDS: Gabapentin 300 MG Cap PO SCH ×2 (14:47→21:31)
[2022-03-30] MEDS: Ipratropium 0.06% Nasal Spray 15 ML Bottle NASBOTH SCH ×2 (15:01→21:31)
[2022-03-30] MEDS: rOPINIRole 0.5 MG Tab PO SCH (21:30)
[2022-03-30] MEDS: Sertraline 50 MG Tab PO SCH (21:31)
[2022-03-31] MEDS: Melatonin 3 MG Tab PO PRN ×2 (02:22→21:29)
[2022-03-31] MEDS: Acetaminophen 500 MG Tab PO SCH ×3 (06:59→21:29)
[2022-03-31] MEDS: Pantoprazole 40 MG Tab.CR PO SCH (06:59)
[2022-03-31] MEDS: Atenolol 25 MG Tab PO SCH (09:34)
[2022-03-31] MEDS: Gabapentin 300 MG Cap PO SCH ×3 (09:34→21:28)
[2022-03-31] MEDS: atorvaSTATin 40 MG Tab PO SCH (09:34)
[2022-03-31] MEDS: amLODIPine 5 MG Tab PO SCH (09:34)
[2022-03-31] MEDS: Cyanocobalamin (Vitamin B12) 100 MCG Tab PO SCH (09:36)
[2022-03-31] MEDS: Ipratropium 0.06% Nasal Spray 15 ML Bottle NASBOTH SCH ×3 (09:36→21:29)
[2022-03-31] MEDS: Enoxaparin 30 MG/0.3 ML Syringe SUBCUT SCH (09:40)
[2022-03-31] MEDS: Psyllium Husk Powder Sugar Free 5.85 GM Packet PO SCH (09:49)
[2022-03-31] MEDS: rOPINIRole 0.5 MG Tab PO SCH (21:27)
[2022-03-31] MEDS: Sertraline 50 MG Tab PO SCH (21:28)
[2022-04-01] MEDS: Acetaminophen 500 MG Tab PO SCH ×4 (06:12→22:18)
[2022-04-01] MEDS: Pantoprazole 40 MG Tab.CR PO SCH (06:41)
[2022-04-01] MEDS: Cyanocobalamin (Vitamin B12) 100 MCG Tab PO SCH (08:16)
[2022-04-01] MEDS: Ipratropium 0.06% Nasal Spray 15 ML Bottle NASBOTH SCH ×3 (08:16→21:08)
[2022-04-01] MEDS: Gabapentin 300 MG Cap PO SCH ×3 (08:25→21:17)
[2022-04-01] MEDS: amLODIPine 5 MG Tab PO SCH (08:25)
[2022-04-01] MEDS: Atenolol 25 MG Tab PO SCH (08:26)
[2022-04-01] MEDS: atorvaSTATin 40 MG Tab PO SCH (08:26)
[2022-04-01] MEDS: Enoxaparin 30 MG/0.3 ML Syringe SUBCUT SCH (08:26)
[2022-04-01] MEDS: Psyllium Husk Powder Sugar Free 5.85 GM Packet PO SCH (08:27)
[2022-04-01] MEDS: rOPINIRole 0.5 MG Tab PO SCH (21:10)
[2022-04-01] MEDS: Sertraline 50 MG Tab PO SCH (21:10)
[2022-04-01] MEDS: Melatonin 3 MG Tab PO PRN (22:18)
[2022-04-02] MEDS: Acetaminophen 500 MG Tab PO SCH ×3 (06:25→21:27)
[2022-04-02] MEDS: Pantoprazole 40 MG Tab.CR PO SCH (06:30)
[2022-04-02] MEDS: atorvaSTATin 40 MG Tab PO SCH (08:48)
[2022-04-02] MEDS: Cyanocobalamin (Vitamin B12) 100 MCG Tab PO SCH (08:48)
[2022-04-02] MEDS: Atenolol 25 MG Tab PO SCH (08:48)
[2022-04-02] MEDS: Gabapentin 300 MG Cap PO SCH ×3 (08:48→21:28)
[2022-04-02] MEDS: amLODIPine 5 MG Tab PO SCH (08:48)
[2022-04-02] MEDS: Ipratropium 0.06% Nasal Spray 15 ML Bottle NASBOTH SCH ×3 (08:49→20:42)
[2022-04-02] MEDS: Psyllium Husk Powder Sugar Free 5.85 GM Packet PO SCH (08:49)
[2022-04-02] MEDS: Enoxaparin 30 MG/0.3 ML Syringe SUBCUT SCH (08:49)
[2022-04-02] MEDS: Sertraline 50 MG Tab PO SCH (21:19)
[2022-04-02] MEDS: rOPINIRole 0.5 MG Tab PO SCH (21:19)
[2022-04-02] MEDS: Melatonin 3 MG Tab PO PRN (23:07)
[2022-04-03] MEDS: Acetaminophen 500 MG Tab PO SCH ×3 (06:00→21:30)
[2022-04-03] MEDS: Pantoprazole 40 MG Tab.CR PO SCH (06:59)
[2022-04-03] MEDS: Enoxaparin 30 MG/0.3 ML Syringe SUBCUT SCH (09:40)
[2022-04-03] MEDS: Psyllium Husk Powder Sugar Free 5.85 GM Packet PO SCH (09:40)
[2022-04-03] MEDS: atorvaSTATin 40 MG Tab PO SCH (09:41)
[2022-04-03] MEDS: Cyanocobalamin (Vitamin B12) 100 MCG Tab PO SCH (09:41)
[2022-04-03] MEDS: Ipratropium 0.06% Nasal Spray 15 ML Bottle NASBOTH SCH ×3 (09:41→21:22)
[2022-04-03] MEDS: Gabapentin 300 MG Cap PO SCH ×3 (09:44→21:29)
[2022-04-03] MEDS: amLODIPine 5 MG Tab PO SCH (09:47)
[2022-04-03] MEDS: Atenolol 25 MG Tab PO SCH (09:48)
[2022-04-03] MEDS: Sertraline 50 MG Tab PO SCH (21:22)
[2022-04-03] MEDS: rOPINIRole 0.5 MG Tab PO SCH (21:22)
[2022-04-03] MEDS: Melatonin 3 MG Tab PO PRN (22:45)
[2022-04-04] MEDS: Acetaminophen 500 MG Tab PO SCH ×3 (06:06→21:00)
[2022-04-04] MEDS: Pantoprazole 40 MG Tab.CR PO SCH (06:58)
[2022-04-04] MEDS: Ipratropium 0.06% Nasal Spray 15 ML Bottle NASBOTH SCH ×3 (09:10→20:56)
[2022-04-04] MEDS: Enoxaparin 30 MG/0.3 ML Syringe SUBCUT SCH (09:12)
[2022-04-04] MEDS: atorvaSTATin 40 MG Tab PO SCH (09:12)
[2022-04-04] MEDS: Psyllium Husk Powder Sugar Free 5.85 GM Packet PO SCH (09:13)
[2022-04-04] MEDS: amLODIPine 5 MG Tab PO SCH (09:13)
[2022-04-04] MEDS: Gabapentin 300 MG Cap PO SCH ×3 (09:13→20:56)
[2022-04-04] MEDS: Atenolol 25 MG Tab PO SCH (09:14)
[2022-04-04] MEDS: Cyanocobalamin (Vitamin B12) 100 MCG Tab PO SCH (09:16)
[2022-04-04] MEDS: rOPINIRole 0.5 MG Tab PO SCH (20:56)
[2022-04-04] MEDS: Sertraline 50 MG Tab PO SCH (20:56)
[2022-04-05] MEDS: Melatonin 3 MG Tab PO PRN
[2022-04-05] MEDS: Acetaminophen 500 MG Tab PO SCH (05:10)
[2022-04-05 05:30] VITALS: BP 157/75; PULSE 67
[2022-04-05] MEDS: Pantoprazole 40 MG Tab.CR PO SCH (06:35)
[2022-04-05] MEDS: Enoxaparin 30 MG/0.3 ML Syringe SUBCUT SCH (09:47)
[2022-04-05] MEDS: Ipratropium 0.06% Nasal Spray 15 ML Bottle NASBOTH SCH (09:47)
[2022-04-05] MEDS: atorvaSTATin 40 MG Tab PO SCH (09:47)
[2022-04-05] MEDS: amLODIPine 5 MG Tab PO SCH (09:48)
[2022-04-05] MEDS: Atenolol 25 MG Tab PO SCH (09:48)
[2022-04-05] MEDS: Cyanocobalamin (Vitamin B12) 100 MCG Tab PO SCH (09:48)
[2022-04-05] MEDS: Psyllium Husk Powder Sugar Free 5.85 GM Packet PO SCH (09:48)
[2022-04-05] MEDS: Gabapentin 300 MG Cap PO SCH (09:49)
== END 2022-04-05 14:10 | disposition home health service (06) | DRG 948 ==
LOC: FB.MS 03-30 12:24
PROVIDERS: ADMIT Family Medicine; ATTEND Family Medicine
DX: R53.1 Weakness (principal); F33.1 Major depressive disorder, recurrent, moderate; N18.32 Chronic kidney disease, stage 3b; Z43.3 Encounter for attention to colostomy; I12.9 Hypertensive chronic kidney disease with stage 1 through stage 4 chronic kidney disease, or unspecified chronic kidney disease; G25.81 Restless legs syndrome; G89.29 Other chronic pain; M54.9 Dorsalgia, unspecified; H54.7 Unspecified visual loss; J30.9 Allergic rhinitis, unspecified; E78.00 Pure hypercholesterolemia, unspecified; K21.9 Gastro-esophageal reflux disease without esophagitis; K44.9 Diaphragmatic hernia without obstruction or gangrene; K27.9 Peptic ulcer, site unspecified, unspecified as acute or chronic, without hemorrhage or perforation; M19.90 Unspecified osteoarthritis, unspecified site; G62.9 Polyneuropathy, unspecified; D64.9 Anemia, unspecified; L21.9 Seborrheic dermatitis, unspecified; I87.8 Other specified disorders of veins; L57.0 Actinic keratosis; Z86.19 Personal history of other infectious and parasitic diseases; Z98.49 Cataract extraction status, unspecified eye; Z90.49 Acquired absence of other specified parts of digestive tract; Z88.8 Allergy status to other drugs, medicaments and biological substances; Z79.899 Other long term (current) drug therapy; Z86.010 Personal history of colon polyps; Z86.73 Personal history of transient ischemic attack (TIA), and cerebral infarction without residual deficits; Z85.828 Personal history of other malignant neoplasm of skin; Z90.710 Acquired absence of both cervix and uterus
CPT/HCPCS: 97116-GP; 97161-GP; 97165-GO; 97530-GO; 97530-GP; 97535-GO; A9270-GY; J1650

== ENCOUNTER 2022-06-11 18:26 | Inpatient (IN) | payer MEDICARE, OTHER ==
[2022-06-11] MEDS ORDERED: Sodium Chloride 0.9% 1,000 ML IV SCH (19:30)
[2022-06-11 19:47] LABS: ESTIMATED GFR 26 mL/min (>60)
[2022-06-11] MEDS: Sodium Chloride 0.9% 10 ML Syringe FLUSH PRN (20:10)
[2022-06-11] MEDS ORDERED: Ondansetron 4 MG/2 ML SDV IV PRN (22:22)
[2022-06-11] MEDS ORDERED: Acetaminophen 325 MG Tab PO PRN (22:22)
[2022-06-11] MEDS ORDERED: Enoxaparin 30 MG/0.3 ML Syringe SUBCUT SCH (22:30)
[2022-06-11] MEDS ORDERED: Cyclobenzaprine 10 MG Tab PO PRN (22:35)
[2022-06-11] MEDS ORDERED: Melatonin 3 MG Tab PO PRN (22:35)
[2022-06-11] MEDS ORDERED: Furosemide 20 MG/2 ML VIAL IVPUSH ONE (22:39)
[2022-06-11 23:35] LABS: CORONAVIRUS COVID-19 NAA NEGATIVE (NEGATIVE)
[2022-06-12] MEDS: Sodium Chloride 0.9% 250 ML IV SCH ×3 (00:03→05:59)
[2022-06-12] MEDS ORDERED: Furosemide 20 MG/2 ML VIAL ONE (02:16)
[2022-06-12] MEDS: Sodium Chloride 0.9% 10 ML Syringe FLUSH PRN ×2 (05:35→08:20)
[2022-06-12] MEDS ORDERED: Furosemide 20 MG/2 ML VIAL IVPUSH ONE (06:00)
[2022-06-12] MEDS ORDERED: Pantoprazole 40 MG Tab.CR PO SCH (09:00)
[2022-06-12] MEDS: Ipratropium 0.06% Nasal Spray 15 ML Bottle NASBOTH SCH ×2 (09:05→20:39)
[2022-06-12] MEDS: Atenolol 25 MG Tab PO SCH (09:08)
[2022-06-12] MEDS: Psyllium Husk Powder Sugar Free 5.85 GM Packet PO SCH (09:08)
[2022-06-12] MEDS: atorvaSTATin 40 MG Tab PO SCH (09:08)
[2022-06-12] MEDS: amLODIPine 5 MG Tab PO SCH (09:12)
[2022-06-12] MEDS: Cyanocobalamin (Vitamin B12) 100 MCG Tab PO SCH (09:12)
[2022-06-12] MEDS: Gabapentin 300 MG Cap PO SCH ×3 (09:18→20:48)
[2022-06-12 09:56] LABS: ESTIMATED GFR 35 mL/min (>60)
[2022-06-12] MEDS: Acetaminophen/HYDROcodone 325-5 MG Tab PO SCH ×3 (11:31→21:46)
[2022-06-12] MEDS ORDERED: Acetaminophen/HYDROcodone 325-5 MG Tab ONE (11:31)
[2022-06-12] MEDS: Polyethylene Glycol 3350 Powder 17 GM Packet PO SCH (11:35)
[2022-06-12] MEDS: Pantoprazole 40 MG Tab.CR PO SCH (20:40)
[2022-06-12] MEDS: rOPINIRole 0.5 MG Tab PO SCH (20:42)
[2022-06-12] MEDS: Sertraline 50 MG Tab PO SCH (20:43)
[2022-06-13 06:32] LABS: ESTIMATED GFR 30 mL/min (>60)
[2022-06-13] MEDS: Ipratropium 0.06% Nasal Spray 15 ML Bottle NASBOTH SCH ×2 (09:04→20:59)
[2022-06-13] MEDS: atorvaSTATin 40 MG Tab PO SCH (09:05)
[2022-06-13] MEDS: Psyllium Husk Powder Sugar Free 5.85 GM Packet PO SCH (09:05)
[2022-06-13] MEDS: Polyethylene Glycol 3350 Powder 17 GM Packet PO SCH (09:05)
[2022-06-13] MEDS: Pantoprazole 40 MG Tab.CR PO SCH ×2 (09:06→21:01)
[2022-06-13] MEDS: Atenolol 25 MG Tab PO SCH (09:06)
[2022-06-13] MEDS: amLODIPine 5 MG Tab PO SCH (09:08)
[2022-06-13] MEDS: Cyanocobalamin (Vitamin B12) 100 MCG Tab PO SCH (09:08)
[2022-06-13] MEDS: Acetaminophen/HYDROcodone 325-5 MG Tab PO SCH ×3 (09:15→21:00)
[2022-06-13] MEDS: Gabapentin 300 MG Cap PO SCH ×3 (09:16→20:59)
[2022-06-13] MEDS: rOPINIRole 0.5 MG Tab PO SCH (21:00)
[2022-06-13] MEDS: Sertraline 50 MG Tab PO SCH (21:01)
[2022-06-14 06:35] LABS: ESTIMATED GFR 32 mL/min (>60)
[2022-06-14] MEDS: Ipratropium 0.06% Nasal Spray 15 ML Bottle NASBOTH SCH (08:50)
[2022-06-14] MEDS: atorvaSTATin 40 MG Tab PO SCH (08:50)
[2022-06-14] MEDS: Atenolol 25 MG Tab PO SCH (08:51)
[2022-06-14] MEDS: Psyllium Husk Powder Sugar Free 5.85 GM Packet PO SCH (08:51)
[2022-06-14] MEDS: amLODIPine 5 MG Tab PO SCH (08:51)
[2022-06-14] MEDS: Polyethylene Glycol 3350 Powder 17 GM Packet PO SCH (08:51)
[2022-06-14] MEDS: Pantoprazole 40 MG Tab.CR PO SCH (08:51)
[2022-06-14] MEDS: Cyanocobalamin (Vitamin B12) 100 MCG Tab PO SCH (08:52)
[2022-06-14] MEDS: Gabapentin 300 MG Cap PO SCH ×2 (08:56→13:38)
[2022-06-14] MEDS: Acetaminophen/HYDROcodone 325-5 MG Tab PO SCH ×2 (08:57→13:38)
[2022-06-14 12:59] VITALS: BP 127/68; PULSE 91
== END 2022-06-14 14:00 | disposition home or self-care (01) | DRG 812 ==
LOC: FB.ED 18:26 → FB.MS 22:37
PROVIDERS: ADMIT Family Medicine; ATTEND Student in an Organized Health Care Education/Training Program
PROC: 30233N1 Transfusion of Nonautologous Red Blood Cells into Peripheral Vein, Percutaneous Approach (ICD-10-PCS; principal; 2022-06-12)
DX: D62 Acute posthemorrhagic anemia (principal); N17.9 Acute kidney failure, unspecified; K92.2 Gastrointestinal hemorrhage, unspecified; F33.1 Major depressive disorder, recurrent, moderate; N18.9 Chronic kidney disease, unspecified; K27.9 Peptic ulcer, site unspecified, unspecified as acute or chronic, without hemorrhage or perforation; K64.8 Other hemorrhoids; E86.0 Dehydration; M54.9 Dorsalgia, unspecified; G25.81 Restless legs syndrome; E78.00 Pure hypercholesterolemia, unspecified; H54.7 Unspecified visual loss; K57.90 Diverticulosis of intestine, part unspecified, without perforation or abscess without bleeding; K21.9 Gastro-esophageal reflux disease without esophagitis; G89.29 Other chronic pain; F32.A Depression, unspecified; E11.40 Type 2 diabetes mellitus with diabetic neuropathy, unspecified; Z43.3 Encounter for attention to colostomy; Z79.899 Other long term (current) drug therapy; Z86.73 Personal history of transient ischemic attack (TIA), and cerebral infarction without residual deficits; Z90.49 Acquired absence of other specified parts of digestive tract; Z90.710 Acquired absence of both cervix and uterus
CPT/HCPCS: 0241U; 36415; 36430; 71045; 72128; 72131; 72192; 73552-RT; 73590-RT; 80048; 80053; 81001; 82550; 83605; 84484; 85025; 85610; 85730; 86850; 86900; 86901; 86920; 86922; 93005; 96360; 96361; 97161-GP; 97530-GP; 99285-25; A9270-GY; J1650; J1940; J3490; J7030; J7050; P9016

== ENCOUNTER 2022-11-11 14:58 | Inpatient (IN) | payer MEDICARE, OTHER ==
[2022-11-11] MEDS ORDERED: Morphine 2 MG/ML SYRINGE IVPUSH PRN (16:37)
[2022-11-11] MEDS ORDERED: Sodium Chloride 0.9% 10 ML Syringe FLUSH PRN (16:37)
[2022-11-11] MEDS ORDERED: Ondansetron 4 MG/2 ML SDV IV PRN (16:37)
[2022-11-11] MEDS ORDERED: Sodium Chloride 0.9% 250 ML IV SCH (16:45)
[2022-11-11] MEDS ORDERED: Sennosides/Docusate Sodium 50-8.6 MG Tab PO PRN (17:03)
[2022-11-11] MEDS ORDERED: Acetaminophen 325 MG Tab PO PRN (17:03)
[2022-11-11] MEDS ORDERED: Melatonin 3 MG Tab PO PRN (17:03)
[2022-11-11] MEDS ORDERED: Cyclobenzaprine 10 MG Tab PO PRN (17:03)
[2022-11-11] MEDS ORDERED: Acetaminophen/HYDROcodone 325-5 MG Tab PO PRN (17:03)
[2022-11-11] MEDS: Sertraline 50 MG Tab PO SCH (21:03)
[2022-11-11] MEDS: Gabapentin 300 MG Cap PO SCH (21:04)
[2022-11-11] MEDS: Pantoprazole 40 MG Tab.CR PO SCH (21:04)
[2022-11-11] MEDS: Ipratropium 0.06% Nasal Spray 15 ML Bottle NASBOTH SCH (21:24)
[2022-11-11] MEDS: rOPINIRole 0.5 MG Tab PO SCH (21:24)
[2022-11-12] MEDS: Pantoprazole 40 MG Tab.CR PO SCH ×2 (05:12→21:29)
[2022-11-12] MEDS: Ipratropium 0.06% Nasal Spray 15 ML Bottle NASBOTH SCH ×2 (08:10→21:30)
[2022-11-12] MEDS: atorvaSTATin 40 MG Tab PO SCH (08:10)
[2022-11-12] MEDS: Cyanocobalamin (Vitamin B12) 100 MCG Tab PO SCH (08:11)
[2022-11-12] MEDS: Atenolol 25 MG Tab PO SCH (08:11)
[2022-11-12] MEDS: Psyllium Husk Powder Sugar Free 5.85 GM Packet PO SCH (08:11)
[2022-11-12] MEDS: amLODIPine 5 MG Tab PO SCH (08:11)
[2022-11-12 08:12] LABS: BASOPHILS ABSOLUTE AUTO 0.1 x10-3/uL (0.0-0.1); BASOPHILS PERCENT AUTO 1.3 % (0.2-1.5); EOSINOPHILS ABSOLUTE AUTO 0.4 x10-3/uL (0.0-0.8); EOSINOPHILS PERCENT AUTO 7.8 % (0.6-8.1); HEMATOCRIT 28.6 % (34.2-48.2); HEMOGLOBIN 9.6 g/dL (11.4-15.5); LYMPHOCYTES ABSOLUTE AUTO 1.8 x10-3/uL (1.0-4.4); LYMPHOCYTES PERCENT AUTO 35.3 % (18.4-52.1); MEAN CORPUSCULAR HEMOGLOBIN 30.7 pg (23.9-33.9); MEAN CORPUSCULAR HGB CONC 33.6 g/dL (31.9-34.8); MEAN CORPUSCULAR VOLUME 91.4 fL (76.7-100.5); MEAN PLATELET VOLUME 9.5 fL (7.1-12.4); MONOCYTES ABSOLUTE AUTO 0.5 x10-3/uL (0.3-1.0); MONOCYTES PERCENT AUTO 10.7 % (4.4-15.7); NEUTROPHILS ABSOLUTE AUTO 2.3 x10-3/uL (1.5-6.3); NEUTROPHILS PERCENT AUTO 44.9 % (30.8-76.2); PLATELET COUNT,PLT 139 x10(3)uL (151-488); RED BLOOD CELL COUNT 3.13 x10(6)uL (3.60-5.20); RED CELL DISTRIBUTION WIDTH 13.4 % (12.3-16.5); WHITE BLOOD CELL COUNT,WBC 5.1 x10-3/uL (3.0-10.3)
[2022-11-12] MEDS: Gabapentin 300 MG Cap PO SCH ×3 (08:13→21:29)
[2022-11-12 08:17] LABS: ALANINE AMINOTRANSFERASE,ALT 25 U/L (12-36); ALKALINE PHOSPHATASE 75 IU/L (56-112); ASPARTATE AMNIOTRANSFERASE,AST 19 IU/L (5-25); BILIRUBIN TOTAL 0.2 mg/dL (0.1-1.3); BLOOD UREA NITROGEN,BUN 55 mg/dL (7-18); BUN/CREATININE RATIO 39.3 (9-20); CARBON DIOXIDE,CO2 22 mmol/L (21-32); CHLORIDE,CL 109 mmol/L (100-110); CREATININE 1.4 mg/dL (0.55-1.02); EST CRCL DRUG DOSING (CG) 25.19 mL/min; ESTIMATED GFR 37 mL/min (>60); GLUCOSE RANDOM 96 mg/dL (80-116); POTASSIUM,K 5.3 mmol/L (3.5-5.3); PROTEIN TOTAL,TP 6.1 g/dL (6.0-8.0); SODIUM,NA 138 mmol/L (135-145)
[2022-11-12] MEDS: Acetaminophen/HYDROcodone 325-5 MG Tab PO SCH ×3 (11:24→21:28)
[2022-11-12] MEDS: rOPINIRole 0.5 MG Tab PO SCH (21:27)
[2022-11-12] MEDS: Sertraline 50 MG Tab PO SCH (21:29)
[2022-11-13] MEDS: Pantoprazole 40 MG Tab.CR PO SCH ×2 (05:58→21:15)
[2022-11-13] MEDS: Gabapentin 300 MG Cap PO SCH ×3 (08:07→21:20)
[2022-11-13] MEDS: Ipratropium 0.06% Nasal Spray 15 ML Bottle NASBOTH SCH ×2 (08:07→21:09)
[2022-11-13] MEDS: Psyllium Husk Powder Sugar Free 5.85 GM Packet PO SCH (08:07)
[2022-11-13] MEDS: atorvaSTATin 40 MG Tab PO SCH (08:07)
[2022-11-13] MEDS: Acetaminophen/HYDROcodone 325-5 MG Tab PO SCH ×3 (08:07→21:19)
[2022-11-13] MEDS: Cyanocobalamin (Vitamin B12) 100 MCG Tab PO SCH (08:08)
[2022-11-13] MEDS: Atenolol 25 MG Tab PO SCH (08:10)
[2022-11-13] MEDS: amLODIPine 5 MG Tab PO SCH (08:10)
[2022-11-13 09:09] LABS: BASOPHILS ABSOLUTE AUTO 0.1 x10-3/uL (0.0-0.1); BASOPHILS PERCENT AUTO 1.3 % (0.2-1.5); EOSINOPHILS ABSOLUTE AUTO 0.4 x10-3/uL (0.0-0.8); EOSINOPHILS PERCENT AUTO 8.1 % (0.6-8.1); HEMATOCRIT 31.3 % (34.2-48.2); HEMOGLOBIN 10.3 g/dL (11.4-15.5); LYMPHOCYTES ABSOLUTE AUTO 1.7 x10-3/uL (1.0-4.4); LYMPHOCYTES PERCENT AUTO 35.6 % (18.4-52.1); MEAN CORPUSCULAR HEMOGLOBIN 30.6 pg (23.9-33.9); MEAN CORPUSCULAR VOLUME 92.9 fL (76.7-100.5); MEAN PLATELET VOLUME 9.3 fL (7.1-12.4); MONOCYTES ABSOLUTE AUTO 0.5 x10-3/uL (0.3-1.0); MONOCYTES PERCENT AUTO 9.6 % (4.4-15.7); NEUTROPHILS ABSOLUTE AUTO 2.2 x10-3/uL (1.5-6.3); NEUTROPHILS PERCENT AUTO 45.4 % (30.8-76.2); PLATELET COUNT,PLT 160 x10(3)uL (151-488); RED BLOOD CELL COUNT 3.36 x10(6)uL (3.60-5.20); WHITE BLOOD CELL COUNT,WBC 4.8 x10-3/uL (3.0-10.3)
[2022-11-13] MEDS ORDERED: Lidocaine 2% 5 ML SDV INJECT ONE (17:00)
[2022-11-13] MEDS: Sertraline 50 MG Tab PO SCH (21:14)
[2022-11-13] MEDS: rOPINIRole 0.5 MG Tab PO SCH (21:14)
[2022-11-14] MEDS: Pantoprazole 40 MG Tab.CR PO SCH (06:10)
[2022-11-14] MEDS: Acetaminophen/HYDROcodone 325-5 MG Tab PO SCH (07:34)
[2022-11-14] MEDS: Atenolol 25 MG Tab PO SCH (09:07)
[2022-11-14] MEDS: Cyanocobalamin (Vitamin B12) 100 MCG Tab PO SCH (09:07)
[2022-11-14] MEDS: Ipratropium 0.06% Nasal Spray 15 ML Bottle NASBOTH SCH (09:08)
[2022-11-14] MEDS: atorvaSTATin 40 MG Tab PO SCH (09:08)
[2022-11-14] MEDS: amLODIPine 5 MG Tab PO SCH (09:08)
[2022-11-14] MEDS: Gabapentin 300 MG Cap PO SCH ×2 (09:28→13:42)
[2022-11-14] MEDS: Psyllium Husk Powder Sugar Free 5.85 GM Packet PO SCH (09:32)
[2022-11-14 13:01] VITALS: BP 137/77; PULSE 82
[2022-11-15] MEDS ORDERED: Psyllium Husk Powder Sugar Free 5.85 GM Packet PO SCH (09:00)
== END 2022-11-14 14:00 | disposition home or self-care (01) | DRG 812 ==
LOC: FB.MS 15:15
PROVIDERS: ADMIT Family Medicine; ATTEND Family Medicine
PROC: 30233N1 Transfusion of Nonautologous Red Blood Cells into Peripheral Vein, Percutaneous Approach (ICD-10-PCS; principal; 2022-11-11)
DX: D62 Acute posthemorrhagic anemia (principal); K92.1 Melena; M54.9 Dorsalgia, unspecified; I12.9 Hypertensive chronic kidney disease with stage 1 through stage 4 chronic kidney disease, or unspecified chronic kidney disease; N18.32 Chronic kidney disease, stage 3b; F32.9 Major depressive disorder, single episode, unspecified; G25.81 Restless legs syndrome; F32.A Depression, unspecified; G89.29 Other chronic pain; K21.9 Gastro-esophageal reflux disease without esophagitis; E78.00 Pure hypercholesterolemia, unspecified; Z86.010 Personal history of colon polyps; Z87.11 Personal history of peptic ulcer disease; Z86.73 Personal history of transient ischemic attack (TIA), and cerebral infarction without residual deficits; Z88.8 Allergy status to other drugs, medicaments and biological substances; Z79.899 Other long term (current) drug therapy; Z98.49 Cataract extraction status, unspecified eye; Z90.710 Acquired absence of both cervix and uterus; Z98.890 Other specified postprocedural states; Z93.3 Colostomy status; Z90.721 Acquired absence of ovaries, unilateral
CPT/HCPCS: 36415; 36430; 80053; 84484; 85025; 86850; 86900; 86901; 86920; 86922; 93005; 97165-GO; 99222; 99232; 99239; A9270-GY; J2270; J3490; J7050; P9016

== ENCOUNTER 2022-12-24 10:23 | Inpatient (IN) | payer MEDICARE, OTHER ==
[2022-12-24] MEDS ORDERED: guaiFENesin 100 MG/5 ML Soln 5 ML UD Cup PO PRN (12:32)
[2022-12-24] MEDS ORDERED: Acetaminophen 325 MG Tab PO PRN (12:32)
[2022-12-24] MEDS ORDERED: Loperamide 2 MG Cap PO PRN (12:32)
[2022-12-24] MEDS ORDERED: Ondansetron 4 MG Tab.DIS PO PRN (12:32)
[2022-12-24] MEDS ORDERED: Hydrocortisone 2.5% Crm 30 GM Tube TOP PRN (13:13)
[2022-12-24] MEDS: Ipratropium 0.06% Nasal Spray 15 ML Bottle NASBOTH SCH ×2 (14:18→20:51)
[2022-12-24] MEDS: Gabapentin 300 MG Cap PO SCH ×2 (14:20→20:52)
[2022-12-24 15:19] LABS: BILIRUBIN,URINE NEGATIVE (NEGATIVE); GLUCOSE,URINE NORMAL (NORMAL); KETONES,URINE NEGATIVE (NEGATIVE); LEUKOCYTE ESTERASE,URINE NEGATIVE (NEGATIVE); NITRITE,URINE NEGATIVE (NEGATIVE); OCCULT BLOOD,URINE NEGATIVE (NEGATIVE); PROTEIN,URINE NEGATIVE (NEGATIVE); UROBILINOGEN,URINE NORMAL (NEGATIVE)
[2022-12-24 15:24] LABS: APPEARANCE,URINE CLEAR (CLEAR); BACTERIA,URINE RARE (NS); COLOR,URINE YELLOW (YELLOW); RBC,URINE 0-5 (0-5); SQUAMOUS EPITHELIAL CELLS,UR OCCASIONAL (NS,R,O); WBC,URINE 0-5 (0-5)
[2022-12-24] MEDS: Melatonin 3 MG Tab PO SCH (20:51)
[2022-12-24] MEDS: rOPINIRole 0.5 MG Tab PO SCH (20:52)
[2022-12-24] MEDS: Sodium Bicarbonate 650 MG Tab PO SCH (20:52)
[2022-12-24] MEDS: Sertraline 50 MG Tab PO SCH (20:53)
[2022-12-25] MEDS: Pantoprazole 40 MG Tab.CR PO SCH (06:44)
[2022-12-25] MEDS: Ipratropium 0.06% Nasal Spray 15 ML Bottle NASBOTH SCH ×3 (08:57→21:16)
[2022-12-25] MEDS: Gabapentin 300 MG Cap PO SCH ×3 (08:57→21:24)
[2022-12-25] MEDS: atorvaSTATin 40 MG Tab PO SCH (08:57)
[2022-12-25] MEDS: Lidocaine 4% 1 each Patch TOP SCH (08:57)
[2022-12-25] MEDS: Psyllium Husk Powder Sugar Free 5.85 GM Packet PO SCH (08:58)
[2022-12-25] MEDS: Ascorbic Acid 500 MG Tab PO SCH (08:58)
[2022-12-25] MEDS: Cyanocobalamin (Vitamin B12) 100 MCG Tab PO SCH (08:58)
[2022-12-25] MEDS: amLODIPine 5 MG Tab PO SCH (08:58)
[2022-12-25] MEDS: Sodium Bicarbonate 650 MG Tab PO SCH ×2 (08:58→21:18)
[2022-12-25] MEDS: Atenolol 25 MG Tab PO SCH (08:58)
[2022-12-25] MEDS: Melatonin 3 MG Tab PO SCH (21:16)
[2022-12-25] MEDS: Sertraline 50 MG Tab PO SCH (21:17)
[2022-12-25] MEDS: rOPINIRole 0.5 MG Tab PO SCH (21:17)
[2022-12-26] MEDS: Pantoprazole 40 MG Tab.CR PO SCH (07:01)
[2022-12-26] MEDS: Ascorbic Acid 500 MG Tab PO SCH (09:15)
[2022-12-26] MEDS: Lidocaine 4% 1 each Patch TOP SCH (09:15)
[2022-12-26] MEDS: Ipratropium 0.06% Nasal Spray 15 ML Bottle NASBOTH SCH ×3 (09:15→20:19)
[2022-12-26] MEDS: atorvaSTATin 40 MG Tab PO SCH (09:16)
[2022-12-26] MEDS: Psyllium Husk Powder Sugar Free 5.85 GM Packet PO SCH (09:16)
[2022-12-26] MEDS: Cyanocobalamin (Vitamin B12) 100 MCG Tab PO SCH (09:16)
[2022-12-26] MEDS: Sodium Bicarbonate 650 MG Tab PO SCH ×2 (09:16→20:20)
[2022-12-26] MEDS: Atenolol 25 MG Tab PO SCH (09:17)
[2022-12-26] MEDS: amLODIPine 5 MG Tab PO SCH (09:18)
[2022-12-26] MEDS: Gabapentin 300 MG Cap PO SCH ×3 (09:21→20:19)
[2022-12-26] MEDS: Melatonin 3 MG Tab PO SCH (20:19)
[2022-12-26] MEDS: rOPINIRole 0.5 MG Tab PO SCH (20:20)
[2022-12-26] MEDS: Sertraline 50 MG Tab PO SCH (20:21)
[2022-12-27] MEDS: Pantoprazole 40 MG Tab.CR PO SCH (06:10)
[2022-12-27] MEDS: amLODIPine 5 MG Tab PO SCH (09:52)
[2022-12-27] MEDS: Ipratropium 0.06% Nasal Spray 15 ML Bottle NASBOTH SCH ×3 (09:52→21:22)
[2022-12-27] MEDS: Cyanocobalamin (Vitamin B12) 100 MCG Tab PO SCH (09:52)
[2022-12-27] MEDS: Sodium Bicarbonate 650 MG Tab PO SCH ×2 (09:53→21:22)
[2022-12-27] MEDS: Ascorbic Acid 500 MG Tab PO SCH (09:53)
[2022-12-27] MEDS: atorvaSTATin 40 MG Tab PO SCH (09:53)
[2022-12-27] MEDS: Atenolol 25 MG Tab PO SCH (09:53)
[2022-12-27] MEDS: Gabapentin 300 MG Cap PO SCH ×3 (09:54→21:21)
[2022-12-27] MEDS: Acetaminophen/HYDROcodone 325-5 MG Tab PO PRN (09:54)
[2022-12-27] MEDS: Psyllium Husk Powder Sugar Free 5.85 GM Packet PO SCH ×2 (09:56→10:05)
[2022-12-27] MEDS: Lidocaine 4% 1 each Patch TOP SCH (09:57)
[2022-12-27] MEDS: rOPINIRole 0.5 MG Tab PO SCH (21:21)
[2022-12-27] MEDS: Sertraline 50 MG Tab PO SCH (21:22)
[2022-12-27] MEDS: Melatonin 3 MG Tab PO SCH (21:22)
[2022-12-28] MEDS: Pantoprazole 40 MG Tab.CR PO SCH (06:05)
[2022-12-28] MEDS: atorvaSTATin 40 MG Tab PO SCH (09:16)
[2022-12-28] MEDS: Cyanocobalamin (Vitamin B12) 100 MCG Tab PO SCH (09:16)
[2022-12-28] MEDS: Gabapentin 300 MG Cap PO SCH ×3 (09:19→21:03)
[2022-12-28] MEDS: Sodium Bicarbonate 650 MG Tab PO SCH ×2 (09:20→21:03)
[2022-12-28] MEDS: Ascorbic Acid 500 MG Tab PO SCH (09:20)
[2022-12-28] MEDS: amLODIPine 5 MG Tab PO SCH (09:21)
[2022-12-28] MEDS: Psyllium Husk Powder Sugar Free 5.85 GM Packet PO SCH (09:21)
[2022-12-28] MEDS: Atenolol 25 MG Tab PO SCH (09:21)
[2022-12-28] MEDS: Ipratropium 0.06% Nasal Spray 15 ML Bottle NASBOTH SCH ×3 (09:21→21:02)
[2022-12-28] MEDS: Lidocaine 4% 1 each Patch TOP SCH (09:22)
[2022-12-28] MEDS: Sertraline 50 MG Tab PO SCH (21:03)
[2022-12-28] MEDS: Melatonin 3 MG Tab PO SCH (21:03)
[2022-12-28] MEDS: rOPINIRole 0.5 MG Tab PO SCH (21:03)
[2022-12-29] MEDS: Acetaminophen/HYDROcodone 325-5 MG Tab PO PRN (03:01)
[2022-12-29] MEDS: Pantoprazole 40 MG Tab.CR PO SCH (06:35)
[2022-12-29] MEDS: Cyanocobalamin (Vitamin B12) 100 MCG Tab PO SCH (10:16)
[2022-12-29] MEDS: Lidocaine 4% 1 each Patch TOP SCH (10:16)
[2022-12-29] MEDS: Ascorbic Acid 500 MG Tab PO SCH (10:17)
[2022-12-29] MEDS: Sodium Bicarbonate 650 MG Tab PO SCH ×2 (10:17→20:19)
[2022-12-29] MEDS: Gabapentin 300 MG Cap PO SCH ×3 (10:18→20:20)
[2022-12-29] MEDS: atorvaSTATin 40 MG Tab PO SCH (10:18)
[2022-12-29] MEDS: Ipratropium 0.06% Nasal Spray 15 ML Bottle NASBOTH SCH ×3 (10:19→20:20)
[2022-12-29] MEDS: amLODIPine 5 MG Tab PO SCH (10:20)
[2022-12-29] MEDS: Atenolol 25 MG Tab PO SCH (10:20)
[2022-12-29] MEDS: Psyllium Husk Powder Sugar Free 5.85 GM Packet PO SCH (10:21)
[2022-12-29] MEDS: Psyllium 0.52 GM Cap PO SCH (14:34)
[2022-12-29] MEDS: rOPINIRole 0.5 MG Tab PO SCH (20:19)
[2022-12-29] MEDS: Sertraline 50 MG Tab PO SCH (20:20)
[2022-12-29] MEDS: Melatonin 3 MG Tab PO SCH (20:20)
[2022-12-30] MEDS: Pantoprazole 40 MG Tab.CR PO SCH (05:36)
[2022-12-30] MEDS: Ascorbic Acid 500 MG Tab PO SCH (08:59)
[2022-12-30] MEDS: atorvaSTATin 40 MG Tab PO SCH (08:59)
[2022-12-30] MEDS: Cyanocobalamin (Vitamin B12) 100 MCG Tab PO SCH (08:59)
[2022-12-30] MEDS: amLODIPine 5 MG Tab PO SCH (08:59)
[2022-12-30] MEDS: Sodium Bicarbonate 650 MG Tab PO SCH ×2 (08:59→20:38)
[2022-12-30] MEDS: Atenolol 25 MG Tab PO SCH (09:00)
[2022-12-30] MEDS: Ipratropium 0.06% Nasal Spray 15 ML Bottle NASBOTH SCH ×3 (09:00→20:36)
[2022-12-30] MEDS: Lidocaine 4% 1 each Patch TOP SCH (09:03)
[2022-12-30] MEDS: Psyllium 0.52 GM Cap PO SCH (09:06)
[2022-12-30] MEDS: Gabapentin 300 MG Cap PO SCH ×3 (09:06→20:37)
[2022-12-30] MEDS: Polyethylene Glycol 3350 Powder 17 GM Packet PO PRN (14:54)
[2022-12-30] MEDS: Melatonin 3 MG Tab PO SCH (20:37)
[2022-12-30] MEDS: rOPINIRole 0.5 MG Tab PO SCH (20:37)
[2022-12-30] MEDS: Sertraline 50 MG Tab PO SCH (20:38)
[2022-12-31] MEDS: Pantoprazole 40 MG Tab.CR PO SCH (06:21)
[2022-12-31] MEDS: Ipratropium 0.06% Nasal Spray 15 ML Bottle NASBOTH SCH ×3 (09:27→20:33)
[2022-12-31] MEDS: Sodium Bicarbonate 650 MG Tab PO SCH ×2 (09:28→20:33)
[2022-12-31] MEDS: Psyllium 0.52 GM Cap PO SCH (09:28)
[2022-12-31] MEDS: Atenolol 25 MG Tab PO SCH (09:29)
[2022-12-31] MEDS: amLODIPine 5 MG Tab PO SCH (09:30)
[2022-12-31] MEDS: Cyanocobalamin (Vitamin B12) 100 MCG Tab PO SCH (09:31)
[2022-12-31] MEDS: Ascorbic Acid 500 MG Tab PO SCH (09:31)
[2022-12-31] MEDS: atorvaSTATin 40 MG Tab PO SCH (09:32)
[2022-12-31] MEDS: Lidocaine 4% 1 each Patch TOP SCH (09:32)
[2022-12-31] MEDS: Polyethylene Glycol 3350 Powder 17 GM Packet PO PRN (09:39)
[2022-12-31] MEDS: Gabapentin 300 MG Cap PO SCH ×3 (09:40→20:32)
[2022-12-31] MEDS: rOPINIRole 0.5 MG Tab PO SCH (20:32)
[2022-12-31] MEDS: Sertraline 50 MG Tab PO SCH (20:32)
[2022-12-31] MEDS: Melatonin 3 MG Tab PO SCH (20:33)
[2023-01-01] MEDS: Acetaminophen/HYDROcodone 325-5 MG Tab PO PRN (04:00)
[2023-01-01] MEDS: Pantoprazole 40 MG Tab.CR PO SCH (05:43)
[2023-01-01] MEDS: atorvaSTATin 40 MG Tab PO SCH (08:37)
[2023-01-01] MEDS: Psyllium 0.52 GM Cap PO SCH (08:37)
[2023-01-01] MEDS: Ipratropium 0.06% Nasal Spray 15 ML Bottle NASBOTH SCH ×2 (08:37→13:29)
[2023-01-01] MEDS: Cyanocobalamin (Vitamin B12) 100 MCG Tab PO SCH (08:38)
[2023-01-01] MEDS: Ascorbic Acid 500 MG Tab PO SCH (08:38)
[2023-01-01] MEDS: Sodium Bicarbonate 650 MG Tab PO SCH (08:38)
[2023-01-01] MEDS: Atenolol 25 MG Tab PO SCH (08:39)
[2023-01-01] MEDS: amLODIPine 5 MG Tab PO SCH (08:39)
[2023-01-01] MEDS: Gabapentin 300 MG Cap PO SCH ×2 (09:27→13:29)
[2023-01-01] MEDS: Lidocaine 4% 1 each Patch TOP SCH (10:51)
[2023-01-01 13:46] VITALS: BP 112/52; PULSE 64
== END 2023-01-01 13:37 | disposition home or self-care (01) | DRG 949 ==
LOC: FB.MS 12:23
PROVIDERS: ADMIT Family Medicine; ATTEND Family Medicine
DX: Z48.815 Encounter for surgical aftercare following surgery on the digestive system (principal); K56.609 Unspecified intestinal obstruction, unspecified as to partial versus complete obstruction; R53.81 Other malaise; I12.9 Hypertensive chronic kidney disease with stage 1 through stage 4 chronic kidney disease, or unspecified chronic kidney disease; N18.9 Chronic kidney disease, unspecified; G89.29 Other chronic pain; G25.81 Restless legs syndrome; R30.0 Dysuria; Z93.3 Colostomy status; M51.36 Other intervertebral disc degeneration, lumbar region; K21.9 Gastro-esophageal reflux disease without esophagitis; E78.00 Pure hypercholesterolemia, unspecified; F32.A Depression, unspecified; Z87.11 Personal history of peptic ulcer disease; Z86.73 Personal history of transient ischemic attack (TIA), and cerebral infarction without residual deficits; Z98.49 Cataract extraction status, unspecified eye; Z90.49 Acquired absence of other specified parts of digestive tract; Z90.710 Acquired absence of both cervix and uterus; Z90.721 Acquired absence of ovaries, unilateral; Z98.890 Other specified postprocedural states; Z88.8 Allergy status to other drugs, medicaments and biological substances; Z79.899 Other long term (current) drug therapy
CPT/HCPCS: 81001; 94150; 97161-GP; 97165-GO; 97530-GO; 97530-GP; 97535-GO; A9270-GY; Q0162

== ENCOUNTER 2023-11-14 17:13 | Emergency (ER) | payer MEDICARE, OTHER ==
[2023-11-14] MEDS: Acetaminophen/HYDROcodone 325-5 MG Tab PO ONE (18:07)
[2023-11-14] MEDS: Cyclobenzaprine 10 MG Tab PO ONE (18:07)
[2023-11-14 22:57] VITALS: BP 162/76; PULSE 71
== END 2023-11-14 20:06 | disposition home or self-care (01) ==
LOC: FB.ED 17:13
DX: M62.830 Muscle spasm of back (principal); I10 Essential (primary) hypertension; E78.00 Pure hypercholesterolemia, unspecified; Z86.73 Personal history of transient ischemic attack (TIA), and cerebral infarction without residual deficits; K21.9 Gastro-esophageal reflux disease without esophagitis; Z90.710 Acquired absence of both cervix and uterus; Z90.49 Acquired absence of other specified parts of digestive tract; Z88.8 Allergy status to other drugs, medicaments and biological substances; Z79.899 Other long term (current) drug therapy
CPT/HCPCS: 99283; A9270

== ENCOUNTER 2023-12-17 15:22 | Emergency (ER) | payer MEDICARE, OTHER ==
[2023-12-17] MEDS: Sodium Chloride 0.9% 1,000 ML IV SCH (16:20)
[2023-12-17] MEDS: Ketorolac 30 MG/ML SDV IVPUSH ONE (16:25)
[2023-12-17 16:35] LABS: BASOPHILS PERCENT AUTO 0.8 % (0.2-1.5); EOSINOPHILS ABSOLUTE AUTO 0.1 x10-3/uL (0.0-0.8); EOSINOPHILS PERCENT AUTO 1.5 % (0.6-8.1); HEMATOCRIT 24.2 % (34.2-48.2); HEMOGLOBIN 7.2 g/dL (11.4-15.5); LYMPHOCYTES ABSOLUTE AUTO 1.5 x10-3/uL (1.0-4.4); LYMPHOCYTES PERCENT AUTO 25.1 % (18.4-52.1); MEAN CORPUSCULAR HGB CONC 29.9 g/dL (31.9-34.8); MEAN CORPUSCULAR VOLUME 80.2 fL (76.7-100.5); MEAN PLATELET VOLUME 8.8 fL (7.1-12.4); MONOCYTES ABSOLUTE AUTO 0.5 x10-3/uL (0.3-1.0); MONOCYTES PERCENT AUTO 9.2 % (4.4-15.7); NEUTROPHILS ABSOLUTE AUTO 3.8 x10-3/uL (1.5-6.3); NEUTROPHILS PERCENT AUTO 63.4 % (30.8-76.2); PLATELET COUNT,PLT 282 x10(3)uL (151-488)
[2023-12-17 16:41] LABS: BLOOD UREA NITROGEN,BUN 51 mg/dL (7-18); BUN/CREATININE RATIO 31.9 (9-20); CALCIUM 10.4 mg/dL (8.6-10.2); CARBON DIOXIDE,CO2 22 mmol/L (21-32); CHLORIDE,CL 111 mmol/L (100-110); CREATININE 1.6 mg/dL (0.55-1.02); EST CRCL DRUG DOSING (CG) 21.65 mL/min; ESTIMATED GFR 32 mL/min (>60); GLUCOSE RANDOM 106 mg/dL (80-116); POTASSIUM,K 4.9 mmol/L (3.5-5.3); SODIUM,NA 143 mmol/L (135-145)
[2023-12-17 16:46] LABS: ALANINE AMINOTRANSFERASE,ALT 18 U/L (12-36); ALBUMIN 3.6 g/dL (3.2-4.6); ALKALINE PHOSPHATASE 95 IU/L (56-112); ASPARTATE AMNIOTRANSFERASE,AST 18 IU/L (5-25); BILIRUBIN TOTAL 0.2 mg/dL (0.1-1.3); PROTEIN TOTAL,TP 7.2 g/dL (6.0-8.0)
[2023-12-17 16:51] LABS: RED BLOOD CELL COUNT 3.01 x10(6)uL (3.60-5.20)
[2023-12-17 17:01] LABS: BILIRUBIN,URINE NEGATIVE (NEGATIVE); GLUCOSE,URINE NORMAL (NORMAL); KETONES,URINE NEGATIVE (NEGATIVE); LEUKOCYTE ESTERASE,URINE MODERATE (NEGATIVE); NITRITE,URINE POSITIVE (NEGATIVE); OCCULT BLOOD,URINE NEGATIVE (NEGATIVE); PROTEIN,URINE NEGATIVE (NEGATIVE); UROBILINOGEN,URINE NORMAL (NEGATIVE)
[2023-12-17 17:02] LABS: APPEARANCE,URINE SLIGHTLY CLOUDY (CLEAR); COLOR,URINE YELLOW (YELLOW); RBC,URINE 0-5 (0-5)
[2023-12-17 17:03] LABS: BACTERIA,URINE MODERATE (NS); SQUAMOUS EPITHELIAL CELLS,UR FEW (NS,R,O)
[2023-12-17] MEDS: Dextrose 5%-0.45% NaCl 1,000 ML IV SCH (18:11)
[2023-12-17] MEDS: Pantoprazole 40 MG Vial IVPUSH ONE (18:12)
[2023-12-17] MEDS: Morphine 2 MG/ML SYRINGE IVPUSH ONE (18:13)
[2023-12-17] MEDS: cefTRIAXone 1 GM Vial IVPUSH ONE (18:24)
[2023-12-17 18:33] VITALS: BP 159/75; PULSE 76
== END 2023-12-17 18:47 ==
LOC: FB.ED 15:22
DX: N39.0 Urinary tract infection, site not specified (principal); N17.9 Acute kidney failure, unspecified; I12.9 Hypertensive chronic kidney disease with stage 1 through stage 4 chronic kidney disease, or unspecified chronic kidney disease; N18.9 Chronic kidney disease, unspecified; D63.1 Anemia in chronic kidney disease; R53.1 Weakness; K92.1 Melena; E78.00 Pure hypercholesterolemia, unspecified; K21.9 Gastro-esophageal reflux disease without esophagitis; Z90.49 Acquired absence of other specified parts of digestive tract; Z90.710 Acquired absence of both cervix and uterus; Z79.899 Other long term (current) drug therapy
CPT/HCPCS: 36415; 71045; 72100; 80053; 81001; 82272; 83605; 85025; 86140; 87040; 87086; 87088; 96361; 96374; 96375; 99285; J0696; J1885; J2270; J2470; J7030; J7799; U0002; 87186

== ENCOUNTER 2023-12-31 12:05 | Inpatient (IN) | payer MEDICARE, OTHER ==
[2023-12-31] MEDS: VANCOmycin 1 GM/200 ML 1 GM in Premix Bag 1 BAG IV SCH (15:27)
[2023-12-31] MEDS: Sodium Chloride 0.9% 10 ML Syringe FLUSH PRN (16:13)
[2023-12-31] MEDS: Labetalol 200 MG Tab PO SCH (20:46)
[2023-12-31] MEDS: Sertraline 100 MG Tab PO SCH (20:46)
[2023-12-31] MEDS: Gabapentin 300 MG Cap PO SCH (20:46)
[2023-12-31] MEDS: Cefepime 2 GM Vial IVPUSH SCH (20:52)
[2023-12-31] MEDS: diphenhydrAMINE 12.5 MG/5 ML Liquid 5 ML UD Cup PO PRN (21:49)
[2023-12-31] MEDS: Acetaminophen/HYDROcodone 325-5 MG Tab PO PRN (21:49)
[2024-01-01] MEDS: Acetaminophen/HYDROcodone 325-5 MG Tab PO PRN (02:05)
[2024-01-01] MEDS: Pantoprazole 40 MG Tab.CR PO SCH (05:20)
[2024-01-01] MEDS: Ferrous Sulfate 325 MG Tab PO SCH (08:41)
[2024-01-01] MEDS: Lidocaine 4% 1 each Patch TOP SCH (08:41)
[2024-01-01] MEDS: amLODIPine 5 MG Tab PO SCH (08:41)
[2024-01-02 06:14] LABS: CREATININE 1.5 mg/dL (0.55-1.02); EST CRCL DRUG DOSING (CG) 23.09 mL/min; VANCOMYCIN TROUGH 23.9 ug/mL (<0.8)
[2024-01-02 09:10] LABS: HEMATOCRIT 28.1 % (34.2-48.2); HEMOGLOBIN 9.1 g/dL (11.4-15.5)
[2024-01-02] MEDS ORDERED: Acetaminophen/HYDROcodone 325-5 MG Tab PO PRN (22:37)
[2024-01-02] MEDS: Acetaminophen/HYDROcodone 325-5 MG Tab PO PRN (22:56)
[2024-01-03] MEDS: Morphine 2 MG/ML SYRINGE IVPUSH ONE (00:36)
[2024-01-03] MEDS: Cyclobenzaprine 10 MG Tab PO ONE (04:11)
[2024-01-03] MEDS: Acetaminophen/oxyCODONE 325-5 MG Tab PO PRN (05:54)
[2024-01-03 06:09] LABS: BASOPHILS ABSOLUTE AUTO 0.1 x10-3/uL (0.0-0.1); BASOPHILS PERCENT AUTO 1.6 % (0.2-1.5); EOSINOPHILS ABSOLUTE AUTO 0.3 x10-3/uL (0.0-0.8); EOSINOPHILS PERCENT AUTO 5.3 % (0.6-8.1); HEMATOCRIT 30.2 % (34.2-48.2); HEMOGLOBIN 9.5 g/dL (11.4-15.5); LYMPHOCYTES ABSOLUTE AUTO 1.2 x10-3/uL (1.0-4.4); LYMPHOCYTES PERCENT AUTO 19.4 % (18.4-52.1); MEAN CORPUSCULAR HEMOGLOBIN 26.9 pg (23.9-33.9); MEAN CORPUSCULAR HGB CONC 31.4 g/dL (31.9-34.8); MEAN CORPUSCULAR VOLUME 85.6 fL (76.7-100.5); MEAN PLATELET VOLUME 9.6 fL (7.1-12.4); MONOCYTES ABSOLUTE AUTO 0.8 x10-3/uL (0.3-1.0); MONOCYTES PERCENT AUTO 12.7 % (4.4-15.7); NEUTROPHILS ABSOLUTE AUTO 3.7 x10-3/uL (1.5-6.3); PLATELET COUNT,PLT 210 x10(3)uL (151-488); RED BLOOD CELL COUNT 3.53 x10(6)uL (3.60-5.20); RED CELL DISTRIBUTION WIDTH 20.1 % (12.3-16.5)
[2024-01-03 06:23] LABS: A/G RATIO 0.8; ALANINE AMINOTRANSFERASE,ALT 62 U/L (12-36); ALBUMIN 2.9 g/dL (3.2-4.6); ALKALINE PHOSPHATASE 105 IU/L (56-112); ASPARTATE AMNIOTRANSFERASE,AST 90 IU/L (5-25); BILIRUBIN TOTAL 0.2 mg/dL (0.1-1.3); BLOOD UREA NITROGEN,BUN 36 mg/dL (7-18); CALCIUM 11.1 mg/dL (8.6-10.2); CARBON DIOXIDE,CO2 20 mmol/L (21-32); CHLORIDE,CL 108 mmol/L (100-110); CREATININE 1.5 mg/dL (0.55-1.02); EST CRCL DRUG DOSING (CG) 23.09 mL/min; ESTIMATED GFR 34 mL/min (>60); GLUCOSE RANDOM 94 mg/dL (80-116); POTASSIUM,K 4.8 mmol/L (3.5-5.3); PROTEIN TOTAL,TP 6.7 g/dL (6.0-8.0); SODIUM,NA 138 mmol/L (135-145)
[2024-01-03] MEDS: VANCOmycin 1 GM/200 ML 1 GM in Premix Bag 1 BAG IV ONE (11:16)
[2024-01-04] MEDS ORDERED: Naloxone 0.4 MG/ML SDV IVPUSH PRN (07:39)
[2024-01-04] MEDS: fentaNYL 100 MCG/2 ML SDV IVPUSH STA (07:51)
[2024-01-04] MEDS: Ondansetron 4 MG/2 ML SDV IVPUSH PRN (09:36)
[2024-01-04] MEDS: fentaNYL 100 MCG/2 ML SDV IVPUSH PRN (16:47)
[2024-01-05 06:19] LABS: BASOPHILS ABSOLUTE AUTO 0.1 x10-3/uL (0.0-0.1); BASOPHILS PERCENT AUTO 2.1 % (0.2-1.5); EOSINOPHILS ABSOLUTE AUTO 0.2 x10-3/uL (0.0-0.8); HEMATOCRIT 28.3 % (34.2-48.2); HEMOGLOBIN 8.9 g/dL (11.4-15.5); LYMPHOCYTES ABSOLUTE AUTO 1.2 x10-3/uL (1.0-4.4); LYMPHOCYTES PERCENT AUTO 25.2 % (18.4-52.1); MEAN CORPUSCULAR HEMOGLOBIN 27.2 pg (23.9-33.9); MEAN CORPUSCULAR HGB CONC 31.4 g/dL (31.9-34.8); MEAN CORPUSCULAR VOLUME 86.5 fL (76.7-100.5); MEAN PLATELET VOLUME 9.6 fL (7.1-12.4); MONOCYTES ABSOLUTE AUTO 0.6 x10-3/uL (0.3-1.0); MONOCYTES PERCENT AUTO 13.9 % (4.4-15.7); NEUTROPHILS ABSOLUTE AUTO 2.5 x10-3/uL (1.5-6.3); NEUTROPHILS PERCENT AUTO 53.8 % (30.8-76.2); PLATELET COUNT,PLT 207 x10(3)uL (151-488); RED BLOOD CELL COUNT 3.27 x10(6)uL (3.60-5.20); RED CELL DISTRIBUTION WIDTH 19.9 % (12.3-16.5); WHITE BLOOD CELL COUNT,WBC 4.7 x10-3/uL (3.0-10.3)
[2024-01-05 06:28] LABS: A/G RATIO 0.8; ALANINE AMINOTRANSFERASE,ALT 45 U/L (12-36); ALBUMIN 2.8 g/dL (3.2-4.6); ALKALINE PHOSPHATASE 110 IU/L (56-112); ASPARTATE AMNIOTRANSFERASE,AST 24 IU/L (5-25); BILIRUBIN TOTAL 0.3 mg/dL (0.1-1.3); BLOOD UREA NITROGEN,BUN 36 mg/dL (7-18); BUN/CREATININE RATIO 21.2 (9-20); CARBON DIOXIDE,CO2 23 mmol/L (21-32); CHLORIDE,CL 107 mmol/L (100-110); CREATININE 1.7 mg/dL (0.55-1.02); EST CRCL DRUG DOSING (CG) 20.38 mL/min; ESTIMATED GFR 29 mL/min (>60); GLUCOSE RANDOM 98 mg/dL (80-116); POTASSIUM,K 5.7 mmol/L (3.5-5.3); PROTEIN TOTAL,TP 6.5 g/dL (6.0-8.0); SODIUM,NA 136 mmol/L (135-145)
[2024-01-05 09:03] VITALS: BP 139/77; PULSE 86
[2024-01-05] MEDS: Gadoteridol 279.3 MG/ML 10 ML SDV IVPUSH ONE (09:08)
[2024-01-05] MEDS: Sodium Chloride 0.9% 1,000 ML IV SCH (13:35)
[2024-01-05 13:47] LABS: APPEARANCE,URINE CLEAR (CLEAR); BACTERIA,URINE RARE (NS); BILIRUBIN,URINE NEGATIVE (NEGATIVE); COLOR,URINE YELLOW (YELLOW); GLUCOSE,URINE NORMAL (NORMAL); KETONES,URINE NEGATIVE (NEGATIVE); LEUKOCYTE ESTERASE,URINE NEGATIVE (NEGATIVE); NITRITE,URINE NEGATIVE (NEGATIVE); OCCULT BLOOD,URINE LARGE (NEGATIVE); PROTEIN,URINE 30 mg/dL (NEGATIVE); RBC,URINE NOT SEEN (0-5); SQUAMOUS EPITHELIAL CELLS,UR FEW (NS,R,O); UROBILINOGEN,URINE NORMAL (NEGATIVE); WBC,URINE NOT SEEN (0-5)
[2024-01-05] MEDS: Sodium Zirconium Cyclosilicate 10 GM Packet PO SCH (13:52)
[2024-01-05] MEDS: VANCOmycin 1 GM/200 ML 1 GM in Premix Bag 1 BAG IV ONE (13:54)
[2024-01-05] MEDS ORDERED: Cefepime 1 GM Vial IVPUSH SCH (21:00)
[2024-01-07 01:44] LABS: CREATININE, URINE - PER VOLUME 35 mg/dL; HOURS COLLECTED Random hr; SODIUM, URINE - PER VOLUME 52 mmol/L; TOTAL VOLUME Random mL
[2024-01-07 14:22] LABS: CREATININE,URINE - PER VOLUME 35 mg/dL; HOURS COLLECTED Random hr; TOTAL VOLUME Random mL
== END 2024-01-05 19:30 | DRG 539 ==
LOC: FB.MS 14:53
PROVIDERS: ADMIT Family Medicine; ATTEND Internal Medicine
DX: M46.20 Osteomyelitis of vertebra, site unspecified (principal); K25.0 Acute gastric ulcer with hemorrhage; D62 Acute posthemorrhagic anemia; M48.00 Spinal stenosis, site unspecified; E87.5 Hyperkalemia; G89.29 Other chronic pain; K20.90 Esophagitis, unspecified without bleeding; G62.9 Polyneuropathy, unspecified; K21.9 Gastro-esophageal reflux disease without esophagitis; F32.A Depression, unspecified; N18.30 Chronic kidney disease, stage 3 unspecified; E86.0 Dehydration; Z88.8 Allergy status to other drugs, medicaments and biological substances; Z86.73 Personal history of transient ischemic attack (TIA), and cerebral infarction without residual deficits; Z86.010 Personal history of colon polyps; Z90.49 Acquired absence of other specified parts of digestive tract; Z90.89 Acquired absence of other organs; Z98.49 Cataract extraction status, unspecified eye; Z98.890 Other specified postprocedural states; Z90.710 Acquired absence of both cervix and uterus; Z90.721 Acquired absence of ovaries, unilateral
CPT/HCPCS: 36415; 70450; 70551; 72128; 72131; 72158; 80053; 80202; 81001; 82271; 82565; 82570; 84300; 85014; 85018; 85025; 97161-GP; 97165-GO; 97530-GO; 97530-GP; 97535-GO; 99305; 99308; 99309; 99315; A9270-GY; A9579; J0692; J2270; J2405; J3010; J3372; J3490; J7030

== ENCOUNTER 2024-01-12 13:57 | Inpatient (IN) | payer MEDICARE, OTHER ==
[~2024-01-12 13:57] MED LIST: Lidocaine 4% 1 each Patch TOP SCH
[2024-01-12] MEDS: Pantoprazole 40 MG Tab.CR PO SCH (18:45)
[2024-01-12] MEDS: Labetalol 200 MG Tab PO SCH (20:28)
[2024-01-12] MEDS: Sertraline 100 MG Tab PO SCH (20:29)
[2024-01-12] MEDS: Gabapentin 300 MG Cap PO SCH (20:31)
[2024-01-12] MEDS: Ondansetron 4 MG/2 ML SDV IVPUSH PRN (21:57)
[2024-01-12] MEDS: oxyCODONE 5 MG Tab PO PRN (22:29)
[2024-01-13] MEDS: oxyCODONE 5 MG Tab PO ONE (02:52)
[2024-01-13] MEDS: Ferrous Sulfate 325 MG Tab PO SCH (08:14)
[2024-01-13] MEDS: amLODIPine 10 MG Tab PO SCH (08:14)
[2024-01-13] MEDS: Lidocaine 4% 1 each Patch TOP SCH (08:15)
[2024-01-13] MEDS ORDERED: DAPTOmycin 500 MG Vial IV SCH (12:00)
[2024-01-13] MEDS: cefTRIAXone 2 GM Vial IVPUSH SCH (12:05)
[2024-01-13] MEDS: DAPTOmycin 500 MG in Sodium Chloride 0.9% 10 ML IVPUSH SCH (12:17)
[2024-01-14] MEDS: oxyCODONE 5 MG Tab PO PRN (09:02)
[2024-01-14] MEDS: Acetaminophen 500 MG Tab PO SCH (11:11)
[2024-01-14] MEDS: Sodium Chloride 0.9% 10 ML Syringe FLUSH PRN (11:14)
[2024-01-15] MEDS: DAPTOmycin 500 MG in Sodium Chloride 0.9% 10 ML IVPUSH SCH (11:54)
[2024-01-16] MEDS: Sodium Chloride 0.9% 10 ML Syringe FLUSH PRN (06:11)
[2024-01-16 06:52] LABS: A/G RATIO 0.9; ALANINE AMINOTRANSFERASE,ALT 33 U/L (12-36); ALBUMIN 2.8 g/dL (3.2-4.6); ALKALINE PHOSPHATASE 92 IU/L (56-112); ASPARTATE AMNIOTRANSFERASE,AST 29 IU/L (5-25); BASOPHILS ABSOLUTE AUTO 0.1 x10-3/uL (0.0-0.1); BASOPHILS PERCENT AUTO 3.4 % (0.2-1.5); BILIRUBIN TOTAL 0.3 mg/dL (0.1-1.3); BLOOD UREA NITROGEN,BUN 37 mg/dL (7-18); BUN/CREATININE RATIO 21.8 (9-20); CALCIUM 10.4 mg/dL (8.6-10.2); CARBON DIOXIDE,CO2 27 mmol/L (21-32); CHLORIDE,CL 102 mmol/L (100-110); CREATINE KINASE,CK 165 IU/L (60-160); CREATININE 1.7 mg/dL (0.55-1.02); EOSINOPHILS ABSOLUTE AUTO 0.2 x10-3/uL (0.0-0.8); EOSINOPHILS PERCENT AUTO 5.9 % (0.6-8.1); EST CRCL DRUG DOSING (CG) 20.38 mL/min; ESTIMATED GFR 29 mL/min (>60); GLUCOSE RANDOM 88 mg/dL (80-116); HEMATOCRIT 27.1 % (34.2-48.2); HEMOGLOBIN 8.6 g/dL (11.4-15.5); LYMPHOCYTES ABSOLUTE AUTO 1.1 x10-3/uL (1.0-4.4); LYMPHOCYTES PERCENT AUTO 26.6 % (18.4-52.1); MEAN CORPUSCULAR HEMOGLOBIN 28.2 pg (23.9-33.9); MEAN CORPUSCULAR HGB CONC 31.8 g/dL (31.9-34.8); MEAN CORPUSCULAR VOLUME 88.7 fL (76.7-100.5); MEAN PLATELET VOLUME 9.8 fL (7.1-12.4); MONOCYTES ABSOLUTE AUTO 0.5 x10-3/uL (0.3-1.0); MONOCYTES PERCENT AUTO 13.2 % (4.4-15.7); NEUTROPHILS ABSOLUTE AUTO 2.1 x10-3/uL (1.5-6.3); NEUTROPHILS PERCENT AUTO 50.9 % (30.8-76.2); PLATELET COUNT,PLT 163 x10(3)uL (151-488); POTASSIUM,K 4.5 mmol/L (3.5-5.3); RED CELL DISTRIBUTION WIDTH 19.8 % (12.3-16.5); SODIUM,NA 136 mmol/L (135-145); WHITE BLOOD CELL COUNT,WBC 4.1 x10-3/uL (3.0-10.3)
[2024-01-16 07:19] LABS: RED BLOOD CELL COUNT 3.05 x10(6)uL (3.60-5.20)
[2024-01-18] MEDS ORDERED: Naloxone 0.4 MG/ML SDV IVPUSH PRN (13:38)
[2024-01-19] MEDS: Cyclobenzaprine 10 MG Tab PO PRN (09:29)
[2024-01-23 06:54] LABS: BASOPHILS ABSOLUTE AUTO 0.1 x10-3/uL (0.0-0.1); BASOPHILS PERCENT AUTO 2.1 % (0.2-1.5); EOSINOPHILS ABSOLUTE AUTO 0.3 x10-3/uL (0.0-0.8); EOSINOPHILS PERCENT AUTO 5.8 % (0.6-8.1); HEMATOCRIT 28.9 % (34.2-48.2); HEMOGLOBIN 9.3 g/dL (11.4-15.5); LYMPHOCYTES ABSOLUTE AUTO 1.1 x10-3/uL (1.0-4.4); LYMPHOCYTES PERCENT AUTO 24.8 % (18.4-52.1); MEAN CORPUSCULAR HEMOGLOBIN 28.4 pg (23.9-33.9); MEAN CORPUSCULAR HGB CONC 32.2 g/dL (31.9-34.8); MEAN CORPUSCULAR VOLUME 88.3 fL (76.7-100.5); MEAN PLATELET VOLUME 8.7 fL (7.1-12.4); MONOCYTES ABSOLUTE AUTO 0.5 x10-3/uL (0.3-1.0); MONOCYTES PERCENT AUTO 11.6 % (4.4-15.7); NEUTROPHILS ABSOLUTE AUTO 2.5 x10-3/uL (1.5-6.3); NEUTROPHILS PERCENT AUTO 55.7 % (30.8-76.2); PLATELET COUNT,PLT 172 x10(3)uL (151-488); RED CELL DISTRIBUTION WIDTH 19.7 % (12.3-16.5); WHITE BLOOD CELL COUNT,WBC 4.6 x10-3/uL (3.0-10.3)
[2024-01-23 07:04] LABS: RED BLOOD CELL COUNT 3.27 x10(6)uL (3.60-5.20)
[2024-01-23 07:05] LABS: A/G RATIO 0.9; ALANINE AMINOTRANSFERASE,ALT 36 U/L (12-36); ALKALINE PHOSPHATASE 86 IU/L (56-112); ASPARTATE AMNIOTRANSFERASE,AST 32 IU/L (5-25); BILIRUBIN TOTAL 0.3 mg/dL (0.1-1.3); BLOOD UREA NITROGEN,BUN 31 mg/dL (7-18); BUN/CREATININE RATIO 18.2 (9-20); CALCIUM 10.3 mg/dL (8.6-10.2); CARBON DIOXIDE,CO2 26 mmol/L (21-32); CHLORIDE,CL 104 mmol/L (100-110); CREATINE KINASE,CK 179 IU/L (60-160); CREATININE 1.7 mg/dL (0.55-1.02); EST CRCL DRUG DOSING (CG) 20.38 mL/min; ESTIMATED GFR 29 mL/min (>60); GLUCOSE RANDOM 91 mg/dL (80-116); POTASSIUM,K 4.5 mmol/L (3.5-5.3); PROTEIN TOTAL,TP 6.3 g/dL (6.0-8.0); SODIUM,NA 138 mmol/L (135-145)
[2024-01-24] MEDS: amLODIPine 5 MG Tab PO SCH (09:57)
[2024-01-30 06:32] LABS: BASOPHILS ABSOLUTE AUTO 0.1 x10-3/uL (0.0-0.1); EOSINOPHILS ABSOLUTE AUTO 0.3 x10-3/uL (0.0-0.8); EOSINOPHILS PERCENT AUTO 8.8 % (0.6-8.1); HEMATOCRIT 30.5 % (34.2-48.2); HEMOGLOBIN 9.9 g/dL (11.4-15.5); LYMPHOCYTES ABSOLUTE AUTO 1.1 x10-3/uL (1.0-4.4); LYMPHOCYTES PERCENT AUTO 26.8 % (18.4-52.1); MEAN CORPUSCULAR HEMOGLOBIN 28.6 pg (23.9-33.9); MEAN CORPUSCULAR HGB CONC 32.3 g/dL (31.9-34.8); MEAN CORPUSCULAR VOLUME 88.4 fL (76.7-100.5); MEAN PLATELET VOLUME 8.9 fL (7.1-12.4); MONOCYTES ABSOLUTE AUTO 0.5 x10-3/uL (0.3-1.0); MONOCYTES PERCENT AUTO 12.1 % (4.4-15.7); NEUTROPHILS PERCENT AUTO 50.3 % (30.8-76.2); PLATELET COUNT,PLT 176 x10(3)uL (151-488); WHITE BLOOD CELL COUNT,WBC 3.9 x10-3/uL (3.0-10.3)
[2024-01-30 06:41] LABS: A/G RATIO 0.9; ALANINE AMINOTRANSFERASE,ALT 36 U/L (12-36); ALBUMIN 3.2 g/dL (3.2-4.6); ALKALINE PHOSPHATASE 88 IU/L (56-112); ASPARTATE AMNIOTRANSFERASE,AST 27 IU/L (5-25); BILIRUBIN TOTAL 0.2 mg/dL (0.1-1.3); BLOOD UREA NITROGEN,BUN 34 mg/dL (7-18); BUN/CREATININE RATIO 21.3 (9-20); CALCIUM 10.5 mg/dL (8.6-10.2); CARBON DIOXIDE,CO2 26 mmol/L (21-32); CHLORIDE,CL 106 mmol/L (100-110); CREATINE KINASE,CK 141 IU/L (60-160); CREATININE 1.6 mg/dL (0.55-1.02); EST CRCL DRUG DOSING (CG) 21.65 mL/min; ESTIMATED GFR 32 mL/min (>60); GLUCOSE RANDOM 82 mg/dL (80-116); POTASSIUM,K 4.9 mmol/L (3.5-5.3); PROTEIN TOTAL,TP 6.7 g/dL (6.0-8.0); SODIUM,NA 141 mmol/L (135-145)
[2024-01-30 06:56] LABS: RED BLOOD CELL COUNT 3.45 x10(6)uL (3.60-5.20)
[2024-02-06 06:51] LABS: BASOPHILS ABSOLUTE AUTO 0.1 x10-3/uL (0.0-0.1); BASOPHILS PERCENT AUTO 1.7 % (0.2-1.5); EOSINOPHILS ABSOLUTE AUTO 0.3 x10-3/uL (0.0-0.8); EOSINOPHILS PERCENT AUTO 7.4 % (0.6-8.1); HEMATOCRIT 31.5 % (34.2-48.2); HEMOGLOBIN 10.1 g/dL (11.4-15.5); LYMPHOCYTES ABSOLUTE AUTO 0.9 x10-3/uL (1.0-4.4); LYMPHOCYTES PERCENT AUTO 25.6 % (18.4-52.1); MEAN CORPUSCULAR HEMOGLOBIN 28.5 pg (23.9-33.9); MEAN CORPUSCULAR VOLUME 89.1 fL (76.7-100.5); MEAN PLATELET VOLUME 9.2 fL (7.1-12.4); MONOCYTES ABSOLUTE AUTO 0.5 x10-3/uL (0.3-1.0); MONOCYTES PERCENT AUTO 14.1 % (4.4-15.7); NEUTROPHILS ABSOLUTE AUTO 1.9 x10-3/uL (1.5-6.3); NEUTROPHILS PERCENT AUTO 51.2 % (30.8-76.2); PLATELET COUNT,PLT 189 x10(3)uL (151-488); RED CELL DISTRIBUTION WIDTH 18.3 % (12.3-16.5); WHITE BLOOD CELL COUNT,WBC 3.7 x10-3/uL (3.0-10.3)
[2024-02-06 07:00] LABS: A/G RATIO 0.9; ALANINE AMINOTRANSFERASE,ALT 36 U/L (12-36); ALBUMIN 3.3 g/dL (3.2-4.6); ALKALINE PHOSPHATASE 85 IU/L (56-112); ASPARTATE AMNIOTRANSFERASE,AST 25 IU/L (5-25); BILIRUBIN TOTAL 0.1 mg/dL (0.1-1.3); BLOOD UREA NITROGEN,BUN 31 mg/dL (7-18); BUN/CREATININE RATIO 19.4 (9-20); CALCIUM 10.4 mg/dL (8.6-10.2); CARBON DIOXIDE,CO2 26 mmol/L (21-32); CHLORIDE,CL 105 mmol/L (100-110); CREATINE KINASE,CK 130 IU/L (60-160); CREATININE 1.6 mg/dL (0.55-1.02); EST CRCL DRUG DOSING (CG) 21.65 mL/min; ESTIMATED GFR 32 mL/min (>60); GLUCOSE RANDOM 94 mg/dL (80-116); POTASSIUM,K 4.9 mmol/L (3.5-5.3); PROTEIN TOTAL,TP 6.8 g/dL (6.0-8.0); SODIUM,NA 139 mmol/L (135-145)
[2024-02-06 07:06] LABS: RED BLOOD CELL COUNT 3.54 x10(6)uL (3.60-5.20)
[2024-02-06] MEDS: Acetaminophen 325 MG Tab PO SCH (13:30)
[2024-02-06] MEDS: Acetaminophen/HYDROcodone 325-5 MG Tab PO PRN (18:58)
[2024-02-07] MEDS: Diclofenac Sodium 1% Gel 100 GM Tube TOP PRN (12:31)
[2024-02-07] MEDS: oxyCODONE 5 MG Tab PO PRN (12:38)
[2024-02-09] MEDS: oxyCODONE 5 MG Tab PO ONE (03:42)
[2024-02-09 07:15] LABS: ALANINE AMINOTRANSFERASE,ALT 36 U/L (12-36); ALBUMIN 3.2 g/dL (3.2-4.6); ALKALINE PHOSPHATASE 85 IU/L (56-112); ASPARTATE AMNIOTRANSFERASE,AST 24 IU/L (5-25); BILIRUBIN TOTAL 0.1 mg/dL (0.1-1.3); BLOOD UREA NITROGEN,BUN 36 mg/dL (7-18); CALCIUM 10.4 mg/dL (8.6-10.2); CARBON DIOXIDE,CO2 26 mmol/L (21-32); CHLORIDE,CL 106 mmol/L (100-110); CREATININE 1.8 mg/dL (0.55-1.02); EST CRCL DRUG DOSING (CG) 19.24 mL/min; ESTIMATED GFR 27 mL/min (>60); GLUCOSE RANDOM 88 mg/dL (80-116); MAGNESIUM 1.5 mg/dL (1.8-2.5); POTASSIUM,K 5.3 mmol/L (3.5-5.3); PROTEIN TOTAL,TP 6.5 g/dL (6.0-8.0); SODIUM,NA 138 mmol/L (135-145)
[2024-02-10 23:28] LABS: CALCIUM, URINE - PER VOLUME 1.4 mg/dL; CREATININE, URINE - PER 24H 800 mg/d (400-1300); CREATININE, URINE - PER VOLUME 50 mg/dL; HOURS COLLECTED 24 hr; SODIUM, URINE - PER 24H 110 mmol/d (51-286); SODIUM, URINE - PER VOLUME 69 mmol/L; TOTAL VOLUME 1600 mL
[2024-02-11 04:47] LABS: CREATININE,URINE - PER 24H 800 mg/d (400-1300); CREATININE,URINE - PER VOLUME 50 mg/dL; HOURS COLLECTED 24 hr; TOTAL VOLUME 1600 mL
[2024-02-11] MEDS: Acetaminophen/oxyCODONE 325-5 MG Tab PO ONE (08:47)
[2024-02-11] MEDS: Amoxicillin/Clavulanate K 500-125 MG Tab PO SCH (20:54)
[2024-02-11] MEDS ORDERED: Amoxicillin/Clavulanate K 875-125 MG Tab PO SCH (21:00)
[2024-02-12 02:22] LABS: PARATHYROID HORMONE,INTACT 143 pg/mL (15-65)
[2024-02-12 09:59] VITALS: BP 151/76; PULSE 77
[2024-02-12 21:06] LABS: ALBUMIN %,URINE 90.8 %; ALPHA-1%,URINE 3.4 %; ALPHA-2 %,URINE 3.2 %; BETA GLOBULIN %,URINE 2.6 %; HOURS COLLECTED 24 hr; TOTAL PROTEIN,URINE-PER VOLUME 40 mg/dL; TOTAL VOLUME 1600 mL; URINE 24 HOUR PROTEIN 640 mg/d (40-150)
== END 2024-02-12 15:25 | disposition home health service (06) | DRG 540 ==
LOC: FB.MS 13:57
PROVIDERS: ADMIT Family Medicine; ATTEND Family Medicine
DX: M46.26 Osteomyelitis of vertebra, lumbar region (principal); K92.2 Gastrointestinal hemorrhage, unspecified; N17.9 Acute kidney failure, unspecified; S82.831D Other fracture of upper and lower end of right fibula, subsequent encounter for closed fracture with routine healing; M48.061 Spinal stenosis, lumbar region without neurogenic claudication; N18.32 Chronic kidney disease, stage 3b; Z93.3 Colostomy status; M81.0 Age-related osteoporosis without current pathological fracture; D63.1 Anemia in chronic kidney disease; K21.9 Gastro-esophageal reflux disease without esophagitis; E78.00 Pure hypercholesterolemia, unspecified; E21.3 Hyperparathyroidism, unspecified; G89.29 Other chronic pain; Z98.1 Arthrodesis status; Z90.49 Acquired absence of other specified parts of digestive tract; Z90.89 Acquired absence of other organs; Z98.49 Cataract extraction status, unspecified eye; Z87.442 Personal history of urinary calculi; Z79.899 Other long term (current) drug therapy; Z98.890 Other specified postprocedural states; Z90.710 Acquired absence of both cervix and uterus; Z90.721 Acquired absence of ovaries, unilateral; Z86.0100 Personal history of colon polyps, unspecified; W01.0XXD Fall on same level from slipping, tripping and stumbling without subsequent striking against object, subsequent encounter
CPT/HCPCS: 36415; 51798; 73560-LT; 73560-RT; 80053; 82340; 82550; 82570; 83735; 83970; 84100; 84156; 84166; 84300; 85025; 86335; 97110-GP; 97112-GP; 97116-GP; 97161-GP; 97165-GO; 97530-GP; 97535-GO; 99305; 99308; 99315; A9270-GY; J0696; J0878; J2405; J3490